=== PATIENT | female | born 1975 | race Caucasian/White ===

== ENCOUNTER 2020-03-28 13:12 | Inpatient (IN) | payer MEDICAID, SELFPAY ==
[~2020-03-28] VITALS: Ht 175.3 cm; Wt 110.2 kg
--- NOTE | 2020-03-28 13:12 | NUR ---
PT BIBA AND PLACED IN BED 1. COVID PRECAUTIONS IN PLACE. PT STATES COVID +.
--- NOTE | 2020-03-28 13:15 | NUR ---
45 YO F BIBA FROM HOME FOR C/C OF SOB X2 HOURS, PER REPORT PT WAS 77% ON RA. PT ARRIVES TO ER ON 15L NRB AT 95% O2. PT STATES SHE WAS DX WITH COVID ON 03/24/20 AND WAS ADMITTED TO [facility] FOR COVID HYPOXIA. PT WAS DISCHARGED YESTERDAY FROM HOSPITAL AND FELT GOOD UNTIL SHE WOKE UP THIS MORNING WITH SOB. LUNG SOUNDS DIMINISHED IN BILATERAL BASES, A&O X4. PT STATES SHE FEELS NAUSEA WITH NO VOMITING. PT PLACED ON RESEARCH PROGRAMMER/PULSE OX. BED LOCKED AND IN LOWEST POSITION. SIDE RAILS X1. MED HX: CHF, DM2
[2020-03-28 13:18] VITALS: BP 179/83
--- NOTE | 2020-03-28 13:35 | NUR ---
RECEIVED THIS 45 YEAR OLD FEMALE FROM HOME, AWAKE, ALERT, ORIENTEDX4. CHIEF COMPLAINTS OF SOB FOR SEVERAL DAYS AND COUGH, S5DOQ-80% AT ROOM AIR, O2 AT 15L/MIN VIA NON REBREATHER MASK ADMINISTERED, T6GWG-80-13%. APPARENTLY ANXIOUS AND NAUSEATED, RE-ASSURANCE RENDERED. WARM TO TOUCH. INITIAL VITAL SIGN TAKEN AND RECORDED. SEEN AND EXAMINED BY DR. DE LA PAZ, MADE ORDERS AND CARRIED OUT. SAFETY MEASURES IN PLACE AND CONTINUE MONITOR. MED HX: HTN, DM,CHF SURGICAL HX: POST CEASAREAN, BILATERAL TOE AMPUTATION. ALLERGY: VANCOMYCIN
[2020-03-28] MEDS ORDERED: ONDANSETRON 4 MG/2 ML VIAL IVP ONE (13:50)
[2020-03-28] MEDS ORDERED: MORPHINE SULFATE 4 MG/ML SYR IVP ONE (13:50)
--- NOTE | 2020-03-28 14:08 | NUR ---
X-Ray at bedside.
[2020-03-28 14:25] LABS: APPEARANCE,URINE CLEAR (CLEAR); BILIRUBIN,URINE NEGATIVE (NEGATIVE); BLOOD, URINE 2+ (NEGATIVE); COLOR,URINE YELLOW (YELLOW); LEUKOCYTE ESTERASE ,URINE NEGATIVE (NEGATIVE); NITRITE, URINE NEGATIVE (NEGATIVE); UGLUCOSE 1+ (NEGATIVE)
[2020-03-28 14:31] LABS: BASOPHILS % (AUTO) 0.1 % (0.0-2.0); HEMATOCRIT 39.8 % (36-48); HEMOGLOBIN 13.2 g/dL (12.0-16.0); LYMPHOCYTES # (AUTO) 0.5 K/uL (2.5-16.5); LYMPHOCYTES % (AUTO) 3.9 % (20.5-51.1); MEAN CORPUSCULAR HEMOGLOBIN 28 pg (27-31); MEAN CORPUSCULAR HGB CONC 33 g/dL (33-37); MEAN CORPUSCULAR VOLUME 85.4 fL (80-94); MONOCYTES # (AUTO) 0.4 K/uL (0.8-1.0); MONOCYTES % (AUTO) 2.7 % (1.7-9.3); NEUTROPHILS # (AUTO) 12.8 K/uL (1.8-7.7); NEUTROPHILS % (AUTO) 93.3 % (42.2-75.2); PLATELET COUNT (AUTO) 224 K/uL (140-450); RED BLOOD CELL COUNT(AUTO) 4.66 MIL/uL (4.20-5.40); RED CELL DISTRIBUTION WIDTH 14.2 % (11.6-13.7); WHITE BLOOD COUNT (AUTO) 13.7 K/uL (4.8-10.8)
[2020-03-28 14:34] LABS: C-REACTIVE PROTEIN QUANT 4.2 mg/dL (0.0-0.9)
[2020-03-28 14:35] LABS: PROTHROMBIN TIME 9.9 secs (10.8-13.4)
[2020-03-28 14:38] LABS: ALBUMIN 2.4 g/dL (3.4-5.0); ANION GAP 18.2 (8-16); CARBON DIOXIDE 20.5 mmol/L (21-32); CREATININE 2.9 mg/dL (0.6-1.3); POTASSIUM 5.7 mmol/L (3.5-5.1); TOTAL BILIRUBIN 0.2 mg/dL (0.0-1.0)
[2020-03-28 14:40] LABS: RBC,URINE 11-20 (MOD) /HPF (0-5); WBC,URINE 0-5 /HPF (0-5)
[2020-03-28] MEDS ORDERED: TRAZ-343 PO (14:42)
[2020-03-28] MEDS ORDERED: ATOR20TA PO (14:42)
[2020-03-28] MEDS ORDERED: GABA300C PO (14:42)
[2020-03-28] MEDS ORDERED: CLOP75TA55 PO (14:42)
[2020-03-28] MEDS ORDERED: CLON-268 PO (14:42)
[2020-03-28] MEDS ORDERED: APIX5TAB PO (14:42)
[2020-03-28] MEDS ORDERED: SPIR50TA PO (14:42)
[2020-03-28] MEDS ORDERED: AMLO10TA PO (14:42)
[2020-03-28] MEDS ORDERED: NACL 0.9% 1,000 ML IV ONE (14:50)
[2020-03-28] MEDS ORDERED: ONDANSETRON 4 MG/2 ML VIAL IM/IVP PRN (15:00)
[2020-03-28] MEDS ORDERED: ACETAMINOPHEN 325 MG TAB PO PRN (15:00)
[2020-03-28] MEDS ORDERED: DOCUSATE SODIUM 100 MG GELCAP PO PRN (15:00)
[2020-03-28] MEDS ORDERED: HYDROcodone/APAP 7.5/325 MG 1 TAB PO PRN (15:00)
[2020-03-28] MEDS ORDERED: ZOLPIDEM 5 MG TAB PO PRN (15:00)
[2020-03-28] MEDS ORDERED: POTASSIUM CHLORIDE 10 MEQ TABER PO PRN (15:00)
[2020-03-28] MEDS ORDERED: guaiFENesin DM 200/20 MG-10 ML 10 ML UDC PO PRN (15:00)
[2020-03-28] MEDS ORDERED: ALBUTEROL HFA MDI 90 MCG/ACTUATION 8 GM INH PRN (15:05)
--- NOTE | 2020-03-28 15:05 | NUR ---
IV CANNULA G 24 INSERTED AT LEFT THUMB, ASYMPTOMATIC AND PATENT
[2020-03-28] MEDS ORDERED: CALCIUM GLUCONATE 10% 1000 MG/10 ML VIAL IVP ONE (15:10)
--- NOTE | 2020-03-28 15:23 | NUR ---
MST CONTACTED MS DUQUE, REPORT GIVEN
[2020-03-28 15:25] LABS: BARBITURATE, URINE NEGATIVE ng/ml (NEG <=200)
[2020-03-28 15:26] LABS: BENZODIAZEPINE, URINE POSITIVE ng/mL (NEG <=200); CANNABINOID, URINE POSITIVE ng/mL (NEG <=50); COCAINE, URINE NEGATIVE ng/mL (NEG <=300); OPIATE, URINE POSITIVE ng/mL (NEG <=2000); PHENCYCLIDINE SCREEN,URINE NEGATIVE ng/mL (NEG <=25)
[2020-03-28 15:29] LABS: CHOL/HDL RATIO 4.1 (1-4.5); PHOSPHORUS 3.9 mg/dL (2.5-4.9); THYROID STIMULATING HORMONE 9.24 uIU/mL (0.34-3.74)
[2020-03-28] MEDS ORDERED: SODIUM ZIRCONIUM CYCLOSILICATE 10 GM POWD.PACK PO SCH (15:30)
--- NOTE | 2020-03-28 15:38 | NUR ---
SHIFTED TO MST PER JEANIE IN STABLE CONDITION. ENDORSED TO RN PRIMARY NURSE.
[2020-03-28 15:45] VITALS: BP 144/96
--- NOTE | 2020-03-28 15:45 | NUR ---
RECEIVED PT FROM ED ON 15L NONREBREATHER MASK. PT O2 SAT IS 93%.PT RESTING IN BED. PT ABLE TO MAKE NEEDS KNOWN. RESPIRATIONS EVEN AND UNLABORED WITH NO SOB OR RESPIRATORY DISTRESS. SKIN WARM AND DRY TO TOUCH. PT HAS A LEFT THUMB 24G IV. IT IS CLEAN DRY AND INTACT. MRSA SWAB COLLECTED AND SENT. PTS MEDS ARE AT BEDSIDE. PT CALLED SISTER CHRISTA TO COME PROBLEM MANAGER MEDICATIONS BUT IS NOT ANSWERING. CHRISTA PHONE NUMBER [phone]. PT REFUSED MEDS TO BE TAKEN OUT OF ROOM AND WANTS THEM AT BEDSIDE. PT IS UNCOOPERATIVE AT TIMES BUT STABLE. SAFETY MEASURES IN PLACE. WILL CONTINUE TO MONITOR
[2020-03-28] MEDS: NACL 0.9% 1,000 ML IV SCH ×2 (17:30→23:04)
--- NOTE | 2020-03-28 17:35 | NUR ---
ADMINISTERED SCHEDULED MED PRESCRIBED PER MD ORDER. PT TOLERATED WELL. MEDICATION EDUCATION PERFORMED. PT VERBALIZED UNDERSTANDING. SAFETY MEASURES IN PLACE. WILL CONTINUE TO MONITOR
[2020-03-28] MEDS ORDERED: CALCIUM GLUCONATE 10% 1000 MG/10 ML VIAL ONE (17:37)
--- NOTE | 2020-03-28 19:30 | NUR ---
RECEIVED PATIENT FROM AM SHIFT NURSE FOR CONTINUITY OF CARE. AAOX4. RESPIRATIONS LABORED AND TACHYPNEIC. CONTINUES ON O2 15L VIA NRM, O2SAT 96%. SKIN WARM, DRY. IV SITE NOTED TO LEFT THUMB 24G, INFUSING FLUIDS WELL. PATIENT C/O PAIN, BUT WAS ALREADY MEDICATED. PATIENT REPOSITIONED AND DIMMED DOWN THE LIGHTS. ABDOMEN SOFT, NONTENDER, NONDISTENDED. BOWEL SOUNDS ACTIVE X4 QUADRANTS. PATIENT IS CONTINENT OF B/B. SAFETY PRECAUTIONS IN PLACE. ISOLATION PRECAUTIONS OBSERVED. CALL LIGHT WITHIN REACH.
[2020-03-28 20:00] VITALS: BP 130/95
[2020-03-28] MEDS ORDERED: LOVENOX 1MG/KG Q12H SUBQ SCH (21:00)
--- NOTE | 2020-03-28 21:00 | NUR ---
PATIENT REFUSED FLUIDS. RISKS AND BENEFITS EXPLAINED BUT PATIENT CONTINUED TO REFUSE. CALL LIGHT WITHIN REACH. ISOLATION PRECAUTIONS OBSERVED.
--- NOTE | 2020-03-28 23:08 | NUR ---
PATIENT RESTING COMFORTABLY IN BED. NO S/S ACUTE DISTRESS. CALL LIGHT WITHIN REACH. ISOLATION PRECAUTIONS OBSERVED.
[2020-03-29] VITALS (19 sets, daily range): BP systolic 96–158; BP diastolic 57–90
--- NOTE | 2020-03-29 01:00 | NUR ---
MADE ROUNDS. PATIENT IS ASLEEP. NO S/S ACUTE DISTRESS. CALL LIGHT WITHIN REACH. ISOLATION PRECAUTIONS OBSERVED. SAFETY PRECAUTIONS IN PLACE.
--- NOTE | 2020-03-29 03:13 | NUR ---
PATIENT IS ASLEEP. NO S/S ACUTE DISTRESS. CALL LIGHT WITHIN REACH. ISOLATION PRECAUTIONS OBSERVED. SAFETY PRECAUTIONS IN PLACE.
--- NOTE | 2020-03-29 03:51 | NUR ---
PATIENT CONTINUES TO ASK FOR PAIN MEDICATION, HOWEVER, O2SAT IS IN THE LOW TO MID 80s. ENCOURAGED PRONE POSITION OR SIDELYING POSITION TO INCREASE O2SAT BUT PATIENT IS VERY NONCOMPLIANT. RISKS AND BENEFITS EXPLAINED REGARDING PAIN MANAGEMENT, PATIENT VERBALIZED UNDERSTANDING BUT NEEDS REINFORCEMENT.
--- NOTE | 2020-03-29 05:00 | NUR ---
PATIENT CONTINUES TO BE NONCOMPLIANT WITH PRONING. O2SAT 80% ON O2 15L NRM. CONTINUES TO REMOVE MASK TO YELL AT STAFF. PROVIDED EDUCATION BUT PATIENT CONTINUES TO BE NONCOMPLIANT.
[2020-03-29 06:40] LABS: HEMATOCRIT 38.6 % (36-48); LYMPHOCYTES # (AUTO) 0.4 K/uL (2.5-16.5); MEAN CORPUSCULAR HEMOGLOBIN 29 pg (27-31); MEAN CORPUSCULAR HGB CONC 34 g/dL (33-37); MEAN CORPUSCULAR VOLUME 85.6 fL (80-94); MONOCYTES # (AUTO) 0.4 K/uL (0.8-1.0); MONOCYTES % (AUTO) 2.3 % (1.7-9.3); NEUTROPHILS # (AUTO) 15.6 K/uL (1.8-7.7); PLATELET COUNT (AUTO) 236 K/uL (140-450); RED BLOOD CELL COUNT(AUTO) 4.51 MIL/uL (4.20-5.40); RED CELL DISTRIBUTION WIDTH 14.7 % (11.6-13.7); WHITE BLOOD COUNT (AUTO) 16.4 K/uL (4.8-10.8)
[2020-03-29] MEDS: NACL 0.9% 1,000 ML IV SCH (07:01)
--- NOTE | 2020-03-29 07:05 | NUR ---
PATIENT HAS BEEN SCREENED AND CATEGORIZED MODERATE NUTRITION RISK. PATIENT WILL BE SEEN WITHIN 3-5 DAYS OF ADMISSION. 03/31/20-04/02/20 FRANCISCO GAMING MS, RDN
--- NOTE | 2020-03-29 07:20 | NUR ---
ENDORSED PATIENT TO AM SHIFT NURSE FOR CONTINUITY OF CARE.
--- NOTE | 2020-03-29 07:25 | NUR ---
RECEIVED REPORT FROM NIGHTSHIFT NURSE. PT RESTING IN BED. PT SHOWING SIGNS OF RESPIRATORY DISTRESS WITH LABORED BREATHING AND COMPLAINTS OF SOB. PT ON 15L NRM AND HIGH FLOW AT 15L O2 AT 75%. EDUCATED PT THAT SHE NEEDS TO BE ON BIPAP SINCE SHE IS NOT TOLERATING ON CURRENT OXYGEN THERAPY. INFORMED DR. JURADO AND CHARGE NURSE. WILL CONTINUE TO MONITOR
[2020-03-29 07:29] LABS: ALBUMIN 2.1 g/dL (3.4-5.0); ANION GAP 19.3 (8-16); CARBON DIOXIDE 18.1 mmol/L (21-32); CREATININE 3.1 mg/dL (0.6-1.3); POTASSIUM 4.4 mmol/L (3.5-5.1); TOTAL BILIRUBIN 0.3 mg/dL (0.0-1.0)
[2020-03-29 07:33] LABS: LYMPHOCYTES % (AUTO) 2.7 % (20.5-51.1)
--- NOTE | 2020-03-29 07:41 | NUR ---
PT REFUSING BIPAP DESPITE O2 BEING IN 50'S. RT AT BEDSIDE AND WAS ABLE TO CONVINCE PT TO KEEP BIPAP ON. PT TOLERATING FAIRLY. PT O2 IS IN LOW 80'S MD AWARE AND WILL BE IN SHORTLY TO ASSESS PATIENT. PER DR. JURADO HOLD OFF ON INTUBATION UNTIL HE SEES PATIENT.
--- NOTE | 2020-03-29 08:15 | NUR ---
PT NEEDS TO BE TRANSFERRED TO ICU. NOTIFIED SISTER CHRISTA [phone] AND BROTHER SHELBY [phone] AND INFORMED THEM ON PT CONDITION. BOTH VERBALIZED UNDERSTANDING. SHELBY WOULD LIKE TO BE THE ONE TO MAKE DECISIONS FOR PATIENT. SHELBY GAVE VERBAL CONSENT FOR PICC LINE PLACEMENT WITH SECOND NURSE POSTAL WORKER. SAFETY MEASURES IN PLACE. WILL CONTINUE TO MONITOR
--- NOTE | 2020-03-29 08:42 | NUR ---
SPOKE WITH SHIRLEY FROM PICC LINE SERVICE, MILENA-PICC LINE RN WILL CALL FOR ETA. RN ASSIGNED MADE AWARE.
--- NOTE | 2020-03-29 08:50 | NUR ---
INSERTED 16FR SORIANO PRESCRIBED PER MD ORDER. PT TOLERATED WELL. CLEAR YELLOW URINE IS DRAINING WITHOUT DEPOSITS OR SEDIMENTS. WILL CONTINUE TO MONITOR
[2020-03-29] MEDS ORDERED: ASCORBIC ACID 500 MG TAB PO SCH (09:00)
[2020-03-29] MEDS ORDERED: ZINC SULF 220 MG CAP PO SCH (09:00)
[2020-03-29] MEDS ORDERED: PANTOPRAZOLE 40 MG TABEC PO SCH (09:00)
[2020-03-29] MEDS ORDERED: AZITHROMYCIN 250 MG TAB PO SCH (09:00)
--- NOTE | 2020-03-29 09:00 | NUR ---
RECEIVED BEDSIDE REPORT FROM MANAGER ENTERPRISECONSUELO DUQUE RN, PT ON BIPAP 100% FIO2, PT SATURATING @ 85%, PER CONSUELO DUQUE PT WAS DESATURATING ON NON REBREATHER MASK 15L EARLIER, RAPID RESPONSE WAS CALLED. PT CURRENTLY SATURATING @ 85%. PT ALERT ORIENTED ABLE TO LET NEEDS KNOWN, IV TO LEFT UPPER ARM, 22G PATENT INTACT, SL, SORIANO CATH IN PLACE DRAINING TO GRAVITY. INITIAL ASSESSMENT DONE, ALL SAFETY PRECAUTION MET, CALL LIGHT WITHIN REACH, WILL CONTINUE TO MONITOR.
--- NOTE | 2020-03-29 09:00 | NUR ---
ENDORSED TO ICU NURSE FOR CONTINUITY OF CARE. PT IS STABLE
--- NOTE | 2020-03-29 09:15 | NUR ---
PT HAS BELONGINGS AT BEDSIDE AND WHEELCHAIR WITH SECURITY. BELONGINGS WERE CLEANED BEFORE GIVEN TO SECURITY.
[2020-03-29] MEDS ORDERED: DEXTROSE 50% 50 ML SYR IVP PRN (10:05)
--- NOTE | 2020-03-29 10:10 | NUR ---
DR MACDONALD AT BEDSIDE, AWARE PT IS SATURATING 85-75%, PER DR LONG PT IS AWAKE ALERT ABLE TO LET NEEDS KNOWN AND ABLE TO TALK WE ARE NOT GOING TO DO INTUBATE PT.
--- NOTE | 2020-03-29 10:25 | NUR ---
SPOKE TO DR HARE REGARDING PT GETTING PICC, PER CENTRAL LINE IS BETTER SINCE THERE IS A POSSIBILITY THAT PT NEEDS DIALYSIS IN THE FUTURE.
[2020-03-29] MEDS: DEXT 5% /NACL 0.9% 1,000 ML IV SCH (10:58)
[2020-03-29] MEDS: BLOOD GLUCOSE MONITORING 1 DEV DEV FS SCH ×3 (11:54→17:30)
[2020-03-29] MEDS: INSULIN LISPRO SLIDING SCALE 100 UNITS/ML VIAL SUBQ PRN ×3 (11:55→22:22)
--- NOTE | 2020-03-29 14:40 | NUR ---
DR. EASTON AT BEDSIDE. PLACED CENTRAL LINE, RIGHT IJ. PATIENT TOLERATED WELL. PENDING X-RAY FOR PROPER PLACEMENT.
[2020-03-29] MEDS: MORPHINE SULFATE 2 MG/ML SYR IVP PRN ×2 (15:26→20:45)
--- NOTE | 2020-03-29 16:40 | NUR ---
PT IN BED RESTING, BS CHECK COMPLETE. COVERAGE REQUIRED.
--- NOTE | 2020-03-29 19:18 | NUR ---
BEDSIDE REPORT GIVEN TO NIGHTSHIFT RN FOR CONTINUITY OF CARE.
--- NOTE | 2020-03-29 20:07 | NUR ---
RECEIVED PATIENT IN SITTING POSITION, ON BIPAP WITH [id number]% , O2 SAT IS ONLY 71%, PATIENT STILL VERY ALERT, AWAKE , ABLE TO FOLLOW THE COMMEND, NPO FOR NOW, IV D5NS AT 70 ML/HR INFUSING AT JANET PERIPHERAL LINE , WILL CONTINUE TO MONITOR.
--- NOTE | 2020-03-29 20:44 | NUR ---
PT SPO2 60 DISCUSSED W/ DR JURADO + SALOME REGARDING INTUBATION. BOTH LIZ AGREE TO INTUBATE PER SALOME MCMAHON PROVIDED VERBAL ORDERS (RN) VERBAL ORDER FENTANYL, VERSED, PROPOFOL VENT SETTINGS PC W/ [employer] VOL 450-500 START PEEP 14 (TITRATE NEEDED/TOLERATED) f24 O2>90% Addendum: 03/29/20 at 2051 by Luis Umaña Jr RT POST INTUBATION ABG 15MINS
[2020-03-29] MEDS ORDERED: PROPOFOL 1000 MG/100 ML PREMIX 100 ML IV ONE (21:00)
[2020-03-29] MEDS ORDERED: fentaNYL citrate 1 MG in NACL 0.9% 80 ML IV PRN (21:25)
--- NOTE | 2020-03-29 22:03 | NUR ---
ER DR. MENDOZA INTUBATED PATIENT IN ICU. ET TUBE 7.5 SECURED AT 24CM. PLACED ON PC 25 RR24 +15 fI02 100%. PATIENT SATTING MID-HIGH 70'S. ABG DRAWN AND REPORTED TO DR. MCMAHON. dR MCMAHON AWARE OF RETURN TIDAL VOLUMES OF 320-420ML. Addendum: 03/29/20 at 2217 by Luis Umaña Jr RT POST ABG RESULTS REPORTED TO DR MCMAHON, PER TITRATE RR TO 30. TITRATE PEEP TO 16 IF NEEDED POST PRONING. IDEALLY MAINTAIN O2 > 88/90%
--- NOTE | 2020-03-29 22:07 | NUR ---
PRONED PATIENT DROPPED PEEP TO 14 AND INCREASED RATE TO 30. PATIENT SATURATION IS AT 99%
[2020-03-30] VITALS (33 sets, daily range): BP systolic 86–150; BP diastolic 59–85
--- NOTE | 2020-03-30 | NUR ---
SPOKE TO DR MCMAHON REGARDING PATIENT'S CONDITION, PRONE POSITION 16 HOUR AND SUPINE 8 HR PER COVID PROTOCOL, VERSED PRN . PRONE PATIENT AT 2300.
[2020-03-30] MEDS: DEXT 5% /NACL 0.9% 1,000 ML IV SCH ×2 (00:23→14:41)
[2020-03-30] MEDS ORDERED: MIDAZOLAM MDV 50 MG in NACL 0.9% 40 ML IV PRN (01:20)
--- NOTE | 2020-03-30 01:50 | NUR ---
SPOKE TO RICA- DAUGHTER REGARDING CODE BLUE , SHE IS AWARE. Addendum: 03/30/20 at 7989 by Veena Lloyd RN RN WRONG PATIENT
[2020-03-30] MEDS ORDERED: MIDAZOLAM MDV 50 MG/10 ML VIAL IV ONE (04:27)
--- NOTE | 2020-03-30 04:30 | NUR ---
BP DROP TO 61/45, TITRATE LEVOPHED TO 4 MCG/KG/MIN, PATIENT IS AWAKE , OPEN HER EYES AND COUGH AT THIS TIME, TITRATE UP PROPOFOL TO 10 MCG/KG/MIN START VERSED AT THIS TIME DUE TO AGITATION , FIO2 100% , WILL CONTINE TO MONITOR.
[2020-03-30 04:55] LABS: BASOPHILS % (AUTO) 0.1 % (0.0-2.0); HEMATOCRIT 31.5 % (36-48); HEMOGLOBIN 10.5 g/dL (12.0-16.0); LYMPHOCYTES # (AUTO) 0.6 K/uL (2.5-16.5); LYMPHOCYTES % (AUTO) 5.7 % (20.5-51.1); MEAN CORPUSCULAR HEMOGLOBIN 28 pg (27-31); MEAN CORPUSCULAR HGB CONC 33 g/dL (33-37); MEAN CORPUSCULAR VOLUME 85.4 fL (80-94); MONOCYTES # (AUTO) 0.3 K/uL (0.8-1.0); NEUTROPHILS # (AUTO) 9.2 K/uL (1.8-7.7); NEUTROPHILS % (AUTO) 91.2 % (42.2-75.2); PLATELET COUNT (AUTO) 160 K/uL (140-450); RED BLOOD CELL COUNT(AUTO) 3.69 MIL/uL (4.20-5.40); RED CELL DISTRIBUTION WIDTH 14.7 % (11.6-13.7); WHITE BLOOD COUNT (AUTO) 10.1 K/uL (4.8-10.8)
[2020-03-30] MEDS: BLOOD GLUCOSE MONITORING 1 DEV DEV FS SCH ×4 (05:22→21:19)
[2020-03-30] MEDS: PROPOFOL 1000 MG/100 ML PREMIX 100 ML IV PRN ×5 (05:33→20:33)
[2020-03-30 05:37] LABS: ALBUMIN 1.6 g/dL (3.4-5.0); ANION GAP 14.8 (8-16); CARBON DIOXIDE 22.5 mmol/L (21-32); CREATININE 3.5 mg/dL (0.6-1.3); POTASSIUM 4.3 mmol/L (3.5-5.1); TOTAL BILIRUBIN 0.2 mg/dL (0.0-1.0)
--- NOTE | 2020-03-30 06:01 | NUR ---
UNABLE TO DRAW ABG DUE TO PATIENTS BP BEING TOO LOW. WILL OBTAIN AT A LATER TIME.
--- NOTE | 2020-03-30 06:30 | NUR ---
PATIENT IS AWAKE , OPEN EYES AND MOVES THE ARMS AND LEG, MAX PROPOFOL AND START VERSED PRN ORDER TO KEEP RASS SCORE -3. WILL CONTINUE TO MONITOR.
--- NOTE | 2020-03-30 07:04 | NUR ---
BODY STILL IN THE ROOM , WAITING TO MINE ANALYST . ENDORSED TO DAY SHIFT NURSE. Addendum: 03/30/20 at 0706 by Veena Lloyd RN RN WRONG PATIENT.
--- NOTE | 2020-03-30 07:40 | NUR ---
PATIENT RECEIVED ON LEVO AT 2, PROPOFOL AT 30, VERSED AT 2, AND IVF AT 70. PATIENT PRONE AT THIS TIME. TO BE SUPINED AT 1400. VITALS STABLE AT THIS TIME.
[2020-03-30] MEDS: PANTOPRAZOLE 40 MG INJ VIAL IVP SCH (08:08)
[2020-03-30] MEDS: DEXAMETHASONE 4 MG/ML VIAL IVP SCH (08:08)
--- NOTE | 2020-03-30 08:45 | NUR ---
0845 CALLED AND LEFT MESSAGE TO VIVIAN, HD NURSE, TO NOTIFY OF HD ORDERS FOR TODAY AND TOMORROW. MESSAGE LEFT.
--- NOTE | 2020-03-30 08:54 | NUR ---
PATIENT WAS RE-SCREENED AND CATEGORIZED HIGH NUTRITIONAL RISK FOR RECENT INTUBATION. RD WILL ASSESS PATIENT 1-2 DAYS WITHIN ADMISSION. 03/30/[address]
[2020-03-30 09:06] LABS: T4 (THYROXINE) 8.2 ug/dL (4.5-12.0)
--- NOTE | 2020-03-30 09:15 | NUR ---
DR. OWENS MADE ROUNDS. UPDATED ON CURRENT PATIENT CONDITION, LABS, MEDS, VENT SETTINGS. NO NEW ORDERS AT THIS TIME.
--- NOTE | 2020-03-30 09:19 | NUR ---
SOCIAL WORK NOTE: Patient's Orientation Unable To Assess Information Provided By SHELBY SHORE - BROTHDAVIDSON Comments SW WAS UNABLE TO MEET PATIENT AT BEDSIDE. SW COMPLETED ASSESSMENT WITH PATIENT'S BROTHER. Pet Store Merchandiser, Realtionship and Phone Number SHELBY SHORE BROTHER [phone] [facility] Power of Manager Of Project Management No Does Patient Have a POLST No Identifying Problems No Social Work Triggers Is A Social Work Consult Needed No Mandate Report Filed No Explanation Of Identifying Problems PATIENT IS A 45-YEAR-OLD FEMALE ADMITTED FOR COVID AND PNEUMONIA. PATIENT HAS PMHX OF CHRONIC PAIN AND CHF. PER BROTHER, PATIENT IS CURRENTLY STAYING AT [facility] 6 IN [place]. BROTHER STATED THAT PATIENT IS CURRENTLY RECEIVING SSI - $900 A MONTH. BROTHER STATED THAT PATIENT WAS IN A HOUSING PROGRAM PRIOR TO HER HOSPITALIZATION. SW WILL PROVIDE HOMELESS RESOURCES TO PATIENT AT BEDSIDE. Admitted From [facility] Pre-Admission Level Of Functioning Status Assist With ADL Level Of Functioning Comment PER BROTHER, PATIENT STAYS WITH FRIEND WES, WHO ASSISTS HER WITH ADLS. PATIENT IS ABLE TO WALK SHORT DISTANCES PER BROTHER. BROTHER DID NOT HAVE CONTACT INFORMATION FOR WES. Prior Resources/Services Used In Last 12 Months Homeless Resources Prior Resources/Service Comments BROTHER STATED THAT PATIENT WAS IN HOUSING PROGRAM PRIOR TO HOSPITALIZATION. Prior DME Wheelchair Dialysis Comments N/A Living Situation Rents A Room Other Living Situation/Comment PER BROTHER, PATIENT RENTS A ROOM IN [place] [facility]. Patient Had Caregiver No Home Support No Caregiver Issues Financial Issues No Known Financial Issue Referral To The Financial Counselor Needed No Factors/Needs Longterm/Homeless Explanation And Or Other Factors Affecting/Possible DC Needs SW WILL PROVIDE HOMELESS RESOURCES AT BEDSIDE AND SPEAK TO PATIENT REGARDING DISCHARGE PLAN. Pt/Rep Participated In Discharge Plan Yes Patient/Family Agress With Discharge Plan Yes Discharge Plan Comments TENTATIVE DISCHARGE PLAN IS FOR PATIENT TO RESUME HOUSING AID THAT SHE WAS RECEIVING PRIOR TO HOSPITALIZATION. DC Plan Status Initiated
--- NOTE | 2020-03-30 10:30 | NUR ---
DR. COONEY MADE ROUNDS. UPDATED ON CURRENT PATIENT CONDITION AND VENT SETTINGS. UPDATED ON CURRENT MEDS. NO NEW ORDERS AT THIS TIME.
[2020-03-30] MEDS: INSULIN LISPRO SLIDING SCALE 100 UNITS/ML VIAL SUBQ PRN ×3 (11:34→21:21)
--- NOTE | 2020-03-30 11:53 | NUR ---
DISCHARGE PLANNING: THIS IS A 45 Y/O FEMALE PATIENT FROM A MOTEL, WHO CAME IN DUE TO WORSENING SOB. PAST MEDICAL HISTORY INCLUDE HEART FAILURE, HTN, CAD, HYPERLIPIDEMIA AND NEUROPATHY. INITIAL DIAGNOSIS OF COVID PNEUMONIA AND HYPOXIA. ORALLY INTUBATED TO VENT, FIO2 75%, PEEP 14, O2 SAT 99%. SEDATED WITH FENTANYL AND VERSED. ON LEVOPHED DRIP, BP 118/66. CURRENT LABS INCLUDE WBC 10.1, H/H 10.5/31.5, NA/K 137/4.3, BUN/CREA 54/3.5, ALB 1.6, D DIMER 3140. UDS SHOWED POSITIVE FOR OPIATES, BENZO AND CANNABINOIDS. COVID RAPID AND PCR POSITIVE. ON DECADRON, ROCEPHIN. CARDIO, ID, NEPHRO, SURGICAL AND PULMO CONSULTS IN PLACE. DC PLAN PENDING ON PATIENT'S RESPONSE TO TREATMENT. Addendum: 04/06/20 at 1150 by Humaira Shi REMAINS IN ICU, INTUBATED TO VENT FIO2 65%, PEEP 10 AND O2 SAT 91%. SEDATED WITH FENTANYL AND PROPOFOL. ON LEVOPHED DRIP BP 89/47. ON MERREM, LINEZOLID. FOR HD TODAY. SEDATION VACATION IF TOLERATED PER PULMO. Addendum: 04/07/20 at 1123 by Humaira Shi CM RECEIVED A CALL FROM JAJA [phone] OF [employer] REQUESTING INFORMATION REGARDING CAPACITY TO TALK FOR SCREENING. INFORMED HER THAT PATIENT IS INTUBATED AND SEDATED AND REMAINS IN ICU. PER YANIRA, SHE WILL FOLLOW UP WITH ME AND THE NURSE FOR UPDATES. Addendum: 04/07/20 at 1315 by Humaira Shi CM SEEN BY PULMO - CONT MECHANICAL VENTILATION. ORDERED CXR AND ABG, CONT TO WEAN DOWN PEEP AND FIO2, WILL START WITH WEANING TOMORROW MORNING.
--- NOTE | 2020-03-30 13:50 | NUR ---
SPOKE TO DR. OWENS TO RECOMMEND BOLUS TUBE FEEDING WITH NEPRO AT 235 ML X 3 DAY WITH PROSOURCE BID, FLUSH [address] OWENS APPROVED TELEPHONE ORDER.
--- NOTE | 2020-03-30 14:00 | NUR ---
PATIENT SUPINED 1400 WITH 2 RT AND 2 RN (INCLUDING MYSELF). PATIENT CLEANED AND BATHED. NO NOTED S/S PAIN SOB OR DISTRESS. TOLERATED REPOSITIONING. CURRENTLY REMAINS ON SEDATION AND LEVOPHED.
--- NOTE | 2020-03-30 15:09 | NUR ---
03/30/20 RD INITIAL ASSESSMENT COMPLETED PLEASE REFER TO NUTRITION ASSESSMENT UNDER CARE ACTIVITY FOR ESTIMATED NUTRITIONAL NEEDS. 1. RECOMMEND BOLUS TUBE FEEDINGS WITH NEPRO 1.8 OF 235 ML X3 DAILY AND PROSOURCE BID (705 ML OF VOLUME DAILY) -THIS WILL PROVIDE 1389 KCAL AND 87 GM OF PROTEIN. MEETING >80% OF KCAL AND PROTEIN. 2. RECOMMEND FREE WATER FLUSH OF [address] TO FOLLOW-UP 2-3 DAYS, HIGH RISK SANDY HANSEN RD
--- NOTE | 2020-03-30 17:08 | NUR ---
PT IN SUPINE POSITION SATURATION 100%. TITRATED FIO2 TO 60% AND PEEP TO +12. PT SATURATION REMAINS STABLE AT 99%. NO SIGNS OF RESPIRATORY DISTRESS. WILL CONTINUE TO MONITOR.
--- NOTE | 2020-03-30 17:54 | NUR ---
HD NURSE CAME AND STARTED HD. ACCORDING TO HER CATHETER NOT WORKING WELL. DR. EASTON WAS IN UNIT AND WAS NOTIFIED. HE STATED TO OBTAIN CONSENT FOR REPLACEMENT OF CATHETER. CALLED PATIENT BROTHER, SHELBY, AND CONSENT OBTAINED AND VERIFIED BY 2 RN. UPDATED ON CURRENT PATIENT CONDITION. DR. EASTON AWARE THAT CONSENT OBTAINED. HD NURSE AWARE CATHETER TO BE REPLACED. HD STOPPED. SUPPLIES PREPARED FOR DR. EASTON TO DO BEDSIDE CATHETER REPLACEMENT.
--- NOTE | 2020-03-30 19:19 | NUR ---
DR. EASTON PLACED LEFT IJ TRIPLE LUMEN AND REPLACE RIGHT IJ GARIMA CATHETER. PATIENT TOLERATED WELL WITHOUT ANY NOTED ISSUES. AT THIS TIME PATIENT VITALS STABLE WITHOUT ANY S/S PAIN SOB OR DISTRESS. SPOKE TO HD NURSE AND LET HER KNOW CATHETER WAS REPLACED. SHE STATED SHE WILL CALL DR. HARE TO FIND OUT IF HE STILL WANTS HD TONIGHT OR OK TO DO TOMORROW. ENDORSED CONTINUITY OF CARE TO NOC RN.
--- NOTE | 2020-03-30 19:30 | NUR ---
Received Pt from day shift on the following setting PC PIP 25, R 30, Fio2 100% and Peep 12. Pt is intubated with size 7.5 ETT secured with anchor fast 24Cm @ Teeth. Ventilator is plugged into the red outlet, alarm set audible. BS clear/ diminished on auscultation. Pt has good chest rise and fall, no respiratory distress noted, Will continue to monitor.
--- NOTE | 2020-03-30 19:34 | NUR ---
RECEIVED PATIENT IN SUPINE POSITION , S/P RIJ GARIMA CATH FOR HD ACCESS, LIJ TRIPLE LUMEN FOR IV ACCESS, ETT TO VENT WITH FIO2 100%, IV DRIP: PROPOFOL 40 MCG/KG/MIN VERSED 2 MG/HR , FENTANYL 0.5 MCG/KG/HR, LEVOPHED 2MCG/MIN , ALL IV MEDICATION INFUSING AT LIJ, OG TUBE IS CLAMPED, SORIANO CATH IN PLACE AND DRAINING TO GRAVITY, SINUS RHYTHM ON THE MONITOR, WILL HAVE HD TODAY OR TOMORROW PER HD NURSE. WILL CONTINUE TO MONITOR.
[2020-03-30] MEDS: MIDAZOLAM MDV 100 MG in NACL 0.9% 80 ML IV PRN (20:33)
[2020-03-31] VITALS (34 sets, daily range): BP systolic 92–143; BP diastolic 40–81
--- NOTE | 2020-03-31 | NUR ---
PRONE PATIENT AT 2300 WITH THE HELP OF 3 RN AND 1 RT.
[2020-03-31] MEDS: INSULIN LISPRO SLIDING SCALE 100 UNITS/ML VIAL SUBQ PRN ×4 (05:44→21:03)
[2020-03-31] MEDS: BLOOD GLUCOSE MONITORING 1 DEV DEV FS SCH ×4 (05:45→20:53)
--- NOTE | 2020-03-31 05:47 | NUR ---
HUMALOG 4 UNIT SQ GIVEN PER SLIDING SCALE FOR BS 207.
[2020-03-31 06:04] LABS: BASOPHILS % (AUTO) 0.2 % (0.0-2.0); HEMATOCRIT 31.6 % (36-48); HEMOGLOBIN 10.5 g/dL (12.0-16.0); LYMPHOCYTES # (AUTO) 0.5 K/uL (2.5-16.5); LYMPHOCYTES % (AUTO) 5.8 % (20.5-51.1); MEAN CORPUSCULAR HEMOGLOBIN 29 pg (27-31); MEAN CORPUSCULAR HGB CONC 33 g/dL (33-37); MEAN CORPUSCULAR VOLUME 85.8 fL (80-94); MONOCYTES # (AUTO) 0.3 K/uL (0.8-1.0); MONOCYTES % (AUTO) 3.7 % (1.7-9.3); NEUTROPHILS # (AUTO) 7.1 K/uL (1.8-7.7); NEUTROPHILS % (AUTO) 90.3 % (42.2-75.2); PLATELET COUNT (AUTO) 163 K/uL (140-450); RED BLOOD CELL COUNT(AUTO) 3.68 MIL/uL (4.20-5.40); WHITE BLOOD COUNT (AUTO) 7.9 K/uL (4.8-10.8)
[2020-03-31 06:28] LABS: MAGNESIUM 2.5 mg/dL (1.8-2.4); PHOSPHORUS 4.8 mg/dL (2.5-4.9)
[2020-03-31 06:35] LABS: ALBUMIN 1.5 g/dL (3.4-5.0); ANION GAP 18.1 (8-16); CARBON DIOXIDE 19.7 mmol/L (21-32); CREATININE 3.5 mg/dL (0.6-1.3); POTASSIUM 4.8 mmol/L (3.5-5.1); TOTAL BILIRUBIN 0.2 mg/dL (0.0-1.0)
--- NOTE | 2020-03-31 08:42 | NUR ---
DR. OWENS MADE ROUNDS. UPDATED ON CURRENT PATIENT CONDITION, MEDS, LABS, VITALS. AWARE THAT PATIENT FOR HD TODAY. NO NEW ORDERS AT THIS TIME.
--- NOTE | 2020-03-31 08:43 | NUR ---
DR. HARE MADE ROUNDS. UPDATED ON CURRENT PATIENT CONDITION AND LABS. ORDERED TO DC IVF. AWARE PATIENT TO HAVE HD TODAY, AND DID NOT RECEIVE HD LAST NIGHT.
[2020-03-31] MEDS: PANTOPRAZOLE 40 MG INJ VIAL IVP SCH (09:10)
[2020-03-31] MEDS: DEXAMETHASONE 4 MG/ML VIAL IVP SCH (09:10)
[2020-03-31] MEDS: PROPOFOL 1000 MG/100 ML PREMIX 100 ML IV PRN ×3 (12:05→20:50)
[2020-03-31] MEDS: MIDAZOLAM MDV 100 MG in NACL 0.9% 80 ML IV PRN (13:20)
--- NOTE | 2020-03-31 15:00 | NUR ---
PATIENT SUPINED AT THIS TIME WITH RT AND 3 RNS TOTAL AT BEDSIDE. TOLERATED WELL WITHOUT ANY NOTED ISSUES. VITALS REMAINED STABLE.
--- NOTE | 2020-03-31 18:53 | NUR ---
PER HD NURSE CATHETER NOT WORKING WELL. SHE WAS ONLY ABLE TO DO [address] HARE NOTIFIED. DR. HARE STATED TO NOTIFY DR. HARE. I CALLED AND LEFT A MESSAGE AT DR. EASTON'S OFFICE AND SPOKE TO MALIK. MESSAGE LEFT NOTIFYING THAT CATHETER NOT WORKING WELL.
--- NOTE | 2020-03-31 19:23 | NUR ---
REPORT ENDORSE TO [facility] RN FOR CONTINUITY OF CARE. ENDORSED TO FOLLOW UP WITH DR. EASTON, AWAITING CALL BACK TO NOTIFY CATHETER NOT WORKING. AT THIS TIME PATIENT VITALS STABLE. REMAINS ON SEDATION WITHOUT ANY NOTED S/S PAIN SOB OR DISTRESS.
--- NOTE | 2020-03-31 19:41 | NUR ---
RECEIVED PATIENT IN SUPINE POSITION WITH FIO2 45%, ETT TO VENT , SEDATED WITH FENTANYL 0.5 MCG/KG/HR, VERSED 2 MG/HR, PROPOFOL 40 MCG/KG/MIN, ALL IV MEDICATION INFUSING AT [facility] CENTRAL LINE, [facility] GARIMA CATH TO HD - NOT WORKING PER REPORT , AND WAITING TO CALL BACK FROM DR EASTON FOR REPLACE GARIMA CATH. WILL CONTINUE TO MONITOR.
[2020-04-01] VITALS (34 sets, daily range): BP systolic 101–180; BP diastolic 33–108
--- NOTE | 2020-04-01 | NUR ---
PRONE PATIENT WITH ASSISTED 3 RN AND 1 RT. PATIENT TOLERATED WELL AT THIS TIME.
--- NOTE | 2020-04-01 04:49 | NUR ---
SKIN CARE AND ORAL CARE GIVEN , OG TUBE FEEDING ON HOLD PER COVID PRONE PROTOCOL.
[2020-04-01] MEDS: fentaNYL citrate - 50mL vial 2.5 MG in NACL 0.9% 200 ML IV PRN (05:10)
[2020-04-01] MEDS: PROPOFOL 1000 MG/100 ML PREMIX 100 ML IV PRN ×5 (05:11→21:39)
[2020-04-01 05:58] LABS: BASOPHILS % (AUTO) 0.1 % (0.0-2.0); HEMATOCRIT 32.1 % (36-48); HEMOGLOBIN 10.5 g/dL (12.0-16.0); LYMPHOCYTES # (AUTO) 0.5 K/uL (2.5-16.5); LYMPHOCYTES % (AUTO) 4.7 % (20.5-51.1); MEAN CORPUSCULAR HEMOGLOBIN 28 pg (27-31); MEAN CORPUSCULAR HGB CONC 33 g/dL (33-37); MEAN CORPUSCULAR VOLUME 85.7 fL (80-94); MONOCYTES # (AUTO) 0.5 K/uL (0.8-1.0); MONOCYTES % (AUTO) 4.5 % (1.7-9.3); NEUTROPHILS # (AUTO) 9.1 K/uL (1.8-7.7); NEUTROPHILS % (AUTO) 90.7 % (42.2-75.2); PLATELET COUNT (AUTO) 206 K/uL (140-450); RED BLOOD CELL COUNT(AUTO) 3.74 MIL/uL (4.20-5.40); RED CELL DISTRIBUTION WIDTH 15.1 % (11.6-13.7)
[2020-04-01] MEDS: BLOOD GLUCOSE MONITORING 1 DEV DEV FS SCH ×4 (06:19→21:00)
[2020-04-01 06:26] LABS: MAGNESIUM 2.4 mg/dL (1.8-2.4); PHOSPHORUS 4.9 mg/dL (2.5-4.9)
[2020-04-01 06:28] LABS: ALBUMIN 1.5 g/dL (3.4-5.0); ANION GAP 18.6 (8-16); CARBON DIOXIDE 19.8 mmol/L (21-32); CREATININE 3.5 mg/dL (0.6-1.3); POTASSIUM 4.4 mmol/L (3.5-5.1); TOTAL BILIRUBIN 0.1 mg/dL (0.0-1.0)
[2020-04-01] MEDS: DEXAMETHASONE 4 MG/ML VIAL IVP SCH (09:21)
[2020-04-01] MEDS: PANTOPRAZOLE 40 MG INJ VIAL IVP SCH (09:21)
[2020-04-01] MEDS ORDERED: ETOMIDATE 20 MG/10 ML VIAL IVP ONE (12:00)
[2020-04-01] MEDS ORDERED: ROCURONIUM 50 MG/5 ML VIAL IV ONE (12:00)
[2020-04-01] MEDS: INSULIN LISPRO SLIDING SCALE 100 UNITS/ML VIAL SUBQ PRN ×3 (12:07→22:15)
[2020-04-01] MEDS: MORPHINE SULFATE 2 MG/ML SYR IVP PRN (22:11)
[2020-04-02] VITALS (31 sets, daily range): BP systolic 116–170; BP diastolic 53–100
[2020-04-02] MEDS: PROPOFOL 1000 MG/100 ML PREMIX 100 ML IV PRN ×7 (01:09→21:37)
[2020-04-02] MEDS: fentaNYL citrate - 50mL vial 2.5 MG in NACL 0.9% 200 ML IV PRN (06:17)
[2020-04-02 06:24] LABS: BASOPHILS % (AUTO) 0.2 % (0.0-2.0); EOSINOPHILS % (AUTO) 0.1 % (0.0-4.0); HEMATOCRIT 30.7 % (36-48); HEMOGLOBIN 10.1 g/dL (12.0-16.0); LYMPHOCYTES # (AUTO) 0.5 K/uL (2.5-16.5); LYMPHOCYTES % (AUTO) 5.1 % (20.5-51.1); MEAN CORPUSCULAR HEMOGLOBIN 28 pg (27-31); MEAN CORPUSCULAR HGB CONC 33 g/dL (33-37); MEAN CORPUSCULAR VOLUME 86.3 fL (80-94); MONOCYTES # (AUTO) 0.6 K/uL (0.8-1.0); MONOCYTES % (AUTO) 6.2 % (1.7-9.3); NEUTROPHILS # (AUTO) 8.7 K/uL (1.8-7.7); NEUTROPHILS % (AUTO) 88.4 % (42.2-75.2); PLATELET COUNT (AUTO) 185 K/uL (140-450); RED BLOOD CELL COUNT(AUTO) 3.56 MIL/uL (4.20-5.40); WHITE BLOOD COUNT (AUTO) 9.8 K/uL (4.8-10.8)
[2020-04-02 06:35] LABS: ALBUMIN 1.4 g/dL (3.4-5.0); ANION GAP 17.1 (8-16); CARBON DIOXIDE 21.4 mmol/L (21-32); CREATININE 3.4 mg/dL (0.6-1.3); POTASSIUM 4.5 mmol/L (3.5-5.1); TOTAL BILIRUBIN 0.2 mg/dL (0.0-1.0)
[2020-04-02 07:00] LABS: MAGNESIUM 2.8 mg/dL (1.8-2.4); PHOSPHORUS 5.5 mg/dL (2.5-4.9)
[2020-04-02] MEDS: BLOOD GLUCOSE MONITORING 1 DEV DEV FS SCH ×4 (07:35→21:51)
[2020-04-02] MEDS: PANTOPRAZOLE 40 MG INJ VIAL IVP SCH (09:02)
[2020-04-02] MEDS: DEXAMETHASONE 4 MG/ML VIAL IVP SCH (09:03)
[2020-04-02] MEDS: ASPIRIN 81 MG TAB.CHEW PO SCH (09:03)
--- NOTE | 2020-04-02 09:05 | NUR ---
NN - NO HEPARIN GIVEN DUE TO POSSIBLE PLACEMENT OF HD CATH TODAY.
[2020-04-02] MEDS: INSULIN LISPRO SLIDING SCALE 100 UNITS/ML VIAL SUBQ PRN ×3 (11:40→21:49)
--- NOTE | 2020-04-02 17:11 | NUR ---
04/02/20 RD FOLLOW UP COMPLETED PLEASE REFER TO NUTRITION ASSESSMENT UNDER CARE ACTIVITY FOR ESTIMATED NUTRITIONAL NEEDS. 1. NEPRO 1.8 OF 235 ML TID AND PROSOURCE BID OR NEPRO 1.8 @ 90 ML/HR X 8 HOURS 2. CONTINUE FLUSH OF 160 ML TID 3. RECOMMEND REGLAN FOR GASTRIC MOTILITY 4. RD TO FOLLOW-UP 2-3 DAYS, HIGH RISK SANDY HANSEN, RD
--- NOTE | 2020-04-02 21:44 | NUR ---
RECEIVED INTUBATED PT FROM AM SHIFT. PT SEEN AND ASSESSED. PT IS INTUBATED WITH ETT SIZE 7.5 AND SECURED WITH BITTING BLOCK ANCHOR-FAST AT 25 @ TEETH. PT IS ON VENT SETTINGS: PC 25, RR 30, PEEP 10, FiO2 55% WITH SPO2 OF 97%. VENT PLUGGED IN RED OUTLET. ALARMS SET AND AUDIBLE TO ENVIRONMENT. AMBU BAG AT BEDSIDE. NOTICED ADEQUATE CHEST RISE AND FALL. AUSCULTATION REVEALS CLEAR BREATH SOUNDS ON THE UPPER LOBES AND RALES BREATH SOUNDS ON THE BASES. SUCTION SMALL AMOUNT OF WHITE THICK SECRETIONS FROM ETT. WILL CONTINUE TO MONITOR PT.
[2020-04-02] MEDS: MORPHINE SULFATE 2 MG/ML SYR IVP PRN (22:45)
[2020-04-03] VITALS (34 sets, daily range): BP systolic 98–156; BP diastolic 50–113
[2020-04-03] MEDS: PROPOFOL 1000 MG/100 ML PREMIX 100 ML IV PRN ×7 (00:36→21:17)
[2020-04-03] MEDS: fentaNYL citrate - 50mL vial 2.5 MG in NACL 0.9% 200 ML IV PRN (05:02)
[2020-04-03 06:18] LABS: BASOPHILS % (AUTO) 0.1 % (0.0-2.0); EOSINOPHILS % (AUTO) 0.2 % (0.0-4.0); HEMOGLOBIN 10.2 g/dL (12.0-16.0); LYMPHOCYTES # (AUTO) 0.5 K/uL (2.5-16.5); LYMPHOCYTES % (AUTO) 4.6 % (20.5-51.1); MEAN CORPUSCULAR HEMOGLOBIN 28 pg (27-31); MEAN CORPUSCULAR HGB CONC 33 g/dL (33-37); MEAN CORPUSCULAR VOLUME 85.9 fL (80-94); MONOCYTES # (AUTO) 0.6 K/uL (0.8-1.0); MONOCYTES % (AUTO) 5.6 % (1.7-9.3); NEUTROPHILS # (AUTO) 10.3 K/uL (1.8-7.7); NEUTROPHILS % (AUTO) 89.5 % (42.2-75.2); PLATELET COUNT (AUTO) 230 K/uL (140-450); RED BLOOD CELL COUNT(AUTO) 3.61 MIL/uL (4.20-5.40); RED CELL DISTRIBUTION WIDTH 15.3 % (11.6-13.7); WHITE BLOOD COUNT (AUTO) 11.5 K/uL (4.8-10.8)
[2020-04-03 06:20] LABS: ALBUMIN 1.3 g/dL (3.4-5.0); ANION GAP 17.2 (8-16); CARBON DIOXIDE 21.3 mmol/L (21-32); CREATININE 3.6 mg/dL (0.6-1.3); POTASSIUM 4.5 mmol/L (3.5-5.1); TOTAL BILIRUBIN 0.2 mg/dL (0.0-1.0)
[2020-04-03] MEDS: BLOOD GLUCOSE MONITORING 1 DEV DEV FS SCH ×4 (08:07→20:38)
[2020-04-03] MEDS: DEXAMETHASONE 4 MG/ML VIAL IVP SCH (09:01)
[2020-04-03] MEDS: ASPIRIN 81 MG TAB.CHEW PO SCH (09:01)
[2020-04-03] MEDS: PANTOPRAZOLE 40 MG INJ VIAL IVP SCH (09:01)
--- NOTE | 2020-04-03 09:02 | NUR ---
NN - HEPARIN HELD FOR PROCEDURE TODAY
[2020-04-03] MEDS: INSULIN LISPRO SLIDING SCALE 100 UNITS/ML VIAL SUBQ PRN ×3 (12:35→20:48)
--- NOTE | 2020-04-03 17:19 | NUR ---
NN - DR. JAKE HARE PLACED NEW HD CATHETER. CHEST XRAY BEING DONE NOW. IF PLACEMENT IS CORRECT, WILL ATTEMPT TO CALL FOR DIALYSIS.
--- NOTE | 2020-04-03 19:24 | NUR ---
REPORT RECEIVED FROM AM SHIFT RN FOR CONTINUITY OF CARE. SINUS BRADYCARDIA ON MONITOR. LT SIDED UPPER CHEST PACEMAKER. SEDATED RASS -3, PT ETT TO VENT, AC/PC MODE, FIO2 55%, RATE 30, PEEP 10. IV SITE LIJ TLC INFUSING FENTANYL 1MCG/KG/HR, VERSED 2MG/HR, PROPOFOL 50 MCG/KG/MIN. RIJ HEMODIAYLSIS CATH SALINE LOCKED. OGT IN PLACE. SORIANO CATHETER IN PLACE. SKIN INTACT, WARM AND DRY. DRY WEIGHT 110 KG. SAFETY PRECAUTIONS IN PLACE. HOB 30 DEGREES. BED LOCKED IN LOWEST POSITION. WILL CONTINUE TO MONITOR.
[2020-04-03] MEDS: METOCLOPRAMIDE 10 MG/2 ML INJ VIAL IVP SCH (20:11)
--- NOTE | 2020-04-03 21:00 | NUR ---
BLOOD SUGAR 189, HUMALOG 2 UNITS GIVEN.
--- NOTE | 2020-04-03 23:12 | NUR ---
PT SEDATED, RESPIRATIONS EVEN AND UNLABORED. CHEST RISE IS SYMMETRICAL. WILL CONTINUE TO MONITOR.
[2020-04-04] VITALS (35 sets, daily range): BP systolic 90–152; BP diastolic 51–81
[2020-04-04] MEDS: MIDAZOLAM MDV 100 MG in NACL 0.9% 80 ML IV PRN (00:11)
[2020-04-04] MEDS: PROPOFOL 1000 MG/100 ML PREMIX 100 ML IV PRN ×7 (00:18→23:21)
--- NOTE | 2020-04-04 01:15 | NUR ---
PT SEDATED, RESPIRATIONS EVEN AND UNLABORED. CHEST RISE IS SYMMETRICAL. WILL CONTINUE TO MONITOR.
--- NOTE | 2020-04-04 03:45 | NUR ---
PT CLEANED, REPOSITIONED, ORAL CARE, AND SORIANO CARE PROVIDED. SAFETY PRECAUTIONS IN PLACE. WILL CONTINUE TO MONITOR.
[2020-04-04] MEDS: METOCLOPRAMIDE 10 MG/2 ML INJ VIAL IVP SCH ×3 (05:00→20:56)
[2020-04-04 06:27] LABS: ANION GAP 20.8 (8-16); CREATININE 3.9 mg/dL (0.6-1.3); POTASSIUM 4.8 mmol/L (3.5-5.1)
[2020-04-04 06:29] LABS: ALBUMIN 1.2 g/dL (3.4-5.0); ANION GAP 19.1 (8-16); CARBON DIOXIDE 18.8 mmol/L (21-32); CREATININE 3.9 mg/dL (0.6-1.3); POTASSIUM 4.9 mmol/L (3.5-5.1); TOTAL BILIRUBIN 0.4 mg/dL (0.0-1.0)
[2020-04-04 06:32] LABS: BASOPHILS % (AUTO) 0.1 % (0.0-2.0); EOSINOPHILS % (AUTO) 0.2 % (0.0-4.0); HEMATOCRIT 29.8 % (36-48); HEMOGLOBIN 9.6 g/dL (12.0-16.0); LYMPHOCYTES # (AUTO) 0.6 K/uL (2.5-16.5); LYMPHOCYTES % (AUTO) 3.9 % (20.5-51.1); MEAN CORPUSCULAR HEMOGLOBIN 28 pg (27-31); MEAN CORPUSCULAR HGB CONC 32 g/dL (33-37); MEAN CORPUSCULAR VOLUME 86.6 fL (80-94); MONOCYTES # (AUTO) 0.8 K/uL (0.8-1.0); MONOCYTES % (AUTO) 5.6 % (1.7-9.3); NEUTROPHILS # (AUTO) 12.8 K/uL (1.8-7.7); NEUTROPHILS % (AUTO) 90.2 % (42.2-75.2); PLATELET COUNT (AUTO) 284 K/uL (140-450); RED BLOOD CELL COUNT(AUTO) 3.44 MIL/uL (4.20-5.40); RED CELL DISTRIBUTION WIDTH 15.4 % (11.6-13.7); WHITE BLOOD COUNT (AUTO) 14.2 K/uL (4.8-10.8)
--- NOTE | 2020-04-04 07:20 | NUR ---
REPORT GIVEN TO AM SHIFT RN FOR CONTINUITY OF CARE
[2020-04-04] MEDS: BLOOD GLUCOSE MONITORING 1 DEV DEV FS SCH ×4 (08:15→21:34)
[2020-04-04] MEDS: fentaNYL citrate - 50mL vial 2.5 MG in NACL 0.9% 200 ML IV PRN (09:08)
[2020-04-04] MEDS: DEXAMETHASONE 4 MG/ML VIAL IVP SCH (09:23)
[2020-04-04] MEDS: PANTOPRAZOLE 40 MG INJ VIAL IVP SCH (09:23)
[2020-04-04] MEDS: ASPIRIN 81 MG TAB.CHEW PO SCH (09:23)
[2020-04-04] MEDS: INSULIN LISPRO SLIDING SCALE 100 UNITS/ML VIAL SUBQ PRN ×2 (17:58→21:32)
[2020-04-04] MEDS: NOREPINEPHRINE 16 MG in DEXTROSE 5% 250 ML IV PRN (18:02)
[2020-04-05] VITALS (35 sets, daily range): BP systolic 95–169; BP diastolic 42–82
[2020-04-05] MEDS: PROPOFOL 1000 MG/100 ML PREMIX 100 ML IV PRN ×6 (01:51→20:36)
[2020-04-05] MEDS: METOCLOPRAMIDE 10 MG/2 ML INJ VIAL IVP SCH ×3 (05:00→20:41)
[2020-04-05 06:12] LABS: BASOPHILS % (AUTO) 0.1 % (0.0-2.0); EOSINOPHILS % (AUTO) 0.1 % (0.0-4.0); LYMPHOCYTES # (AUTO) 0.7 K/uL (2.5-16.5); LYMPHOCYTES % (AUTO) 3.7 % (20.5-51.1); MEAN CORPUSCULAR HEMOGLOBIN 28 pg (27-31); MEAN CORPUSCULAR HGB CONC 32 g/dL (33-37); MEAN CORPUSCULAR VOLUME 86.5 fL (80-94); MONOCYTES # (AUTO) 0.7 K/uL (0.8-1.0); MONOCYTES % (AUTO) 3.7 % (1.7-9.3); NEUTROPHILS # (AUTO) 17.5 K/uL (1.8-7.7); NEUTROPHILS % (AUTO) 92.4 % (42.2-75.2); PLATELET COUNT (AUTO) 346 K/uL (140-450); RED BLOOD CELL COUNT(AUTO) 3.58 MIL/uL (4.20-5.40); RED CELL DISTRIBUTION WIDTH 15.5 % (11.6-13.7)
[2020-04-05 06:14] LABS: ANION GAP 17.8 (8-16); CARBON DIOXIDE 19.2 mmol/L (21-32); CREATININE 3.9 mg/dL (0.6-1.3)
--- NOTE | 2020-04-05 07:55 | NUR ---
RECEIVED HANDOFF FROM MARBLE RUBBER RN. PT IS SEDATED RASS -3. PT IS ETT TO VENT ACPC MODE WITH FIO2 55%, R 30, PEEP 10. PT HAS OG TUBE BUT PER MARBLE RUBBER FEEDING WAS HELD DUE TO HIGH RESIDUAL. PT IS SR ON THE MONITOR AT THIS TIME. FOR ACCESS PT HAS LIJ TRIPLE LUMEN AND RIJ GARIMA HD CATHETER. FENTANYL 1 MCG/KG/HR, VERSED AT 2 MG/HR, PROPOFOL AT 50 MCG/KG/MIN. SORIANO CATHETER IS IN PLACE. HOB IS 30 DEG WITH BED IN LOW, LOCKED POSITION. WILL CONTINUE TO MONITOR.
--- NOTE | 2020-04-05 08:40 | NUR ---
RECEIVED ON A MaginAPE R860 VENTILATOR PLUGGED INTO RED OUTLET TOLERATING WELL WITHOUT ADVERSE REACTIONS NOTED TO AN ENDOTRACHEAL TUBE #7.5 SECURED AT 25cm WITH AN ANCHOR FAST CUFF PRESSURE CHECKED NOTED AMBU BAG AT BEDSIDE ENDOTRACHEAL TUBE SUCTION FOR MODERATE THIN YELLOW SECRETIONS AIRWAY PATENT
[2020-04-05] MEDS: ASPIRIN 81 MG TAB.CHEW PO SCH (09:00)
[2020-04-05] MEDS: fentaNYL citrate - 50mL vial 2.5 MG in NACL 0.9% 200 ML IV PRN (09:23)
[2020-04-05] MEDS: BLOOD GLUCOSE MONITORING 1 DEV DEV FS SCH ×3 (09:30→18:27)
[2020-04-05] MEDS: PANTOPRAZOLE 40 MG INJ VIAL IVP SCH (09:38)
[2020-04-05] MEDS: DEXAMETHASONE 4 MG/ML VIAL IVP SCH (09:39)
--- NOTE | 2020-04-05 10:13 | NUR ---
MEDICATIONS ADMINISTERED PER ORDER EXCEPT ASPIRIN HELD DUE TO PT ALREADY BEING ON HEPARIN SQ. TEMPERATURE 97.3 TEMPORALLY. PT REPOSITIONED. VAP ORAL CARE PROVIDED, CHG BATH, SORIANO CARE PROVIDED. RESIDUAL OF 20 ML FROM OG TUBE FEED. WILL CONSULT FNS FOR NEW TUBE FEED ORDER.
--- NOTE | 2020-04-05 11:38 | NUR ---
SEDATED RESTING COMFORTABLY GOOD CHEST RISE ENDOTRACHEAL SUCTION FOR LARGE THIN YELLOW SECRETIONS AIRWAY PATENT OROPHARYNGEAL SUCTION FOR LARGE THIN PALE YELLOW SECRETIONS
--- NOTE | 2020-04-05 11:57 | NUR ---
04/05/20 RD FOLLOW UP COMPLETED PLEASE REFER TO NUTRITION PROGRESS NOTE UNDER CARE ACTIVITY FOR ESTIMATED NUTRITION NEEDS. RD RECOMMENDATIONS: 1. RECOMMEND TF NEPRO @40MLS/HR.X24HRS (CONTINUOUS TF). THIS WILL PROVIDE 1728KCALS, 78GM PROTEIN - SUFFICIENT TO MEET 100% ESTIMATED NEEDS 2. RECOMMEND FLUSH OF 200 MLS Q6HRS 3. RECOMMEND CONTINUE REGLAN FOR GASTRIC MOTILITY 4. RD TO FOLLOW-UP 2-3 DAYS, HIGH RISK KEYANNA SERVIN MBA, RD
[2020-04-05] MEDS: INSULIN LISPRO SLIDING SCALE 100 UNITS/ML VIAL SUBQ PRN ×2 (13:00→18:27)
--- NOTE | 2020-04-05 13:15 | NUR ---
DR. ZHANG SEEING PT
--- NOTE | 2020-04-05 13:16 | NUR ---
MEDICATIONS GIVEN PER ORDER. PT TOLERATED WELL. TEMPERATURE 98.9 TEMPORALLY. BS 159 2 UNITS INSULIN ADMINISTERED FOR COVERAGE. PT REPOSITIONED AND VAP ORAL CARE DONE.
--- NOTE | 2020-04-05 13:57 | NUR ---
RESTING WELL GOOD CHEST RISE AIRWAY PATENT
--- NOTE | 2020-04-05 15:30 | NUR ---
DR. FIELDS PAGED REGARDING POSITIVE SPUTUM CULTURES. AWAITING RESPONSE
--- NOTE | 2020-04-05 15:43 | NUR ---
BROTHER SHELBY CALLED AND WAS PROVIDED WITH UPDATE ON PT'S STATUS
--- NOTE | 2020-04-05 16:44 | NUR ---
PT REPOSITIONED, CLEANED, LINENS CHANGED. TEMPERATURE 99.3 AXILLARY. PT LEFT UNCOVERED. WILL CONTINUE TO MONITOR. VAP ORAL CARE PROVIDED.
--- NOTE | 2020-04-05 17:41 | NUR ---
100 ML CLEAR KERA URINE EMPTIED FROM SORIANO CATHETER
--- NOTE | 2020-04-05 19:19 | NUR ---
HANDOFF GIVEN TO PEDIATRIC MEDICAL ASSISTANT RN FOR CONTINUITY OF CARE
--- NOTE | 2020-04-05 19:44 | NUR ---
RECEIVED PT FROM DAY SHIFT ON THE VENTILATOR FOLLOWING SETTING PC PIP25. R30, FIO2 55%, PEEP 10. PT INTUBATED WITH A SIZE 7.5 ETT SECURE WITH AN ANCHOR FAST @ 25CM TEETH/GUM. VENTILATOR IS PLUGGED INTO THE RED OUTLET, ALARM SET AUDIBLE. PT HAS GOOD CHEST RISE AND FALL. B/S CLEAR AND DIMINISHED AT BASES. WILL CONTINUE TO MONITOR.
[2020-04-05] MEDS: MEROPENEM 500 MG in NACL 0.9% 50 ML IV SCH (22:00)
[2020-04-05] MEDS ORDERED: MEROPENEM 500 MG VIAL IV ONE (23:53)
[2020-04-06] VITALS (32 sets, daily range): BP systolic 86–166; BP diastolic 45–109
[2020-04-06] MEDS: LINEZOLID 600MG PREMIX 300 ML IV SCH ×3 (00:07→20:04)
[2020-04-06] MEDS: PROPOFOL 1000 MG/100 ML PREMIX 100 ML IV PRN ×3 (00:51→17:43)
--- NOTE | 2020-04-06 01:20 | NUR ---
PT PULLING VOLUME FROM 800 TO 900. DECREASE PEAK INSPIRATORY PRESSURE TO 18 TO KEEP MINUTE VENTILATION BETWEEN 20 TO 25. WILL CONTINUE MONITOR.
[2020-04-06] MEDS: ACETAMINOPHEN 650 MG SUPP RC PRN (02:05)
[2020-04-06] MEDS: METOCLOPRAMIDE 10 MG/2 ML INJ VIAL IVP SCH ×3 (05:00→20:05)
[2020-04-06] MEDS: BLOOD GLUCOSE MONITORING 1 DEV DEV FS SCH ×5 (06:00→23:00)
[2020-04-06 06:25] LABS: BASOPHILS # (AUTO) 0.1 K/uL (0.00-0.22); BASOPHILS % (AUTO) 0.7 % (0.0-2.0); EOSINOPHILS % (AUTO) 0.1 % (0.0-4.0); HEMATOCRIT 29.6 % (36-48); HEMOGLOBIN 9.4 g/dL (12.0-16.0); LYMPHOCYTES # (AUTO) 0.4 K/uL (2.5-16.5); LYMPHOCYTES % (AUTO) 2.1 % (20.5-51.1); MEAN CORPUSCULAR HEMOGLOBIN 28 pg (27-31); MEAN CORPUSCULAR HGB CONC 32 g/dL (33-37); MEAN CORPUSCULAR VOLUME 87.5 fL (80-94); MONOCYTES # (AUTO) 0.7 K/uL (0.8-1.0); NEUTROPHILS # (AUTO) 17.1 K/uL (1.8-7.7); NEUTROPHILS % (AUTO) 93.1 % (42.2-75.2); PLATELET COUNT (AUTO) 357 K/uL (140-450); RED BLOOD CELL COUNT(AUTO) 3.38 MIL/uL (4.20-5.40); RED CELL DISTRIBUTION WIDTH 15.5 % (11.6-13.7); WHITE BLOOD COUNT (AUTO) 18.3 K/uL (4.8-10.8)
[2020-04-06 06:31] LABS: ANION GAP 20.4 (8-16); CARBON DIOXIDE 19.4 mmol/L (21-32); POTASSIUM 4.8 mmol/L (3.5-5.1)
[2020-04-06 07:22] LABS: CREATININE 5.1 mg/dL (0.6-1.3)
[2020-04-06] MEDS: NOREPINEPHRINE 16 MG in DEXTROSE 5% 250 ML IV PRN (08:22)
[2020-04-06] MEDS: MEROPENEM 500 MG in NACL 0.9% 50 ML IV SCH ×4 (09:17→20:01)
[2020-04-06] MEDS: PANTOPRAZOLE 40 MG INJ VIAL IVP SCH (09:18)
[2020-04-06] MEDS: ASPIRIN 81 MG TAB.CHEW PO SCH (09:19)
[2020-04-06] MEDS: DEXAMETHASONE 4 MG/ML VIAL IVP SCH (09:19)
[2020-04-06] MEDS: fentaNYL citrate - 50mL vial 2.5 MG in NACL 0.9% 200 ML IV PRN (09:48)
[2020-04-06] MEDS: INSULIN LISPRO SLIDING SCALE 100 UNITS/ML VIAL SUBQ PRN ×3 (11:40→23:01)
--- NOTE | 2020-04-06 19:30 | NUR ---
RECEIVED PATIENT CARE REPORT FROM GUILLERMINA CORDERO. PATIENT ETT TO VENT, HOB AT 30 DEGREES, TRACH SECURED, IN PLACE AND AIRWAY PATENT. CURRENT VENT SETTINGS ARE AC/PC, FIO2 AT 65%, RR 30, AND PEEP 10. PATIENT CURRENTLY TOLERATING VENT SETTINGS WELL. PATIENT HAS AN OG TUBE IN PLACE, SECURED, PATENT AND INTACT. TUBE FEEDING ORDER IS NEPRO, GOAL OF 40 ML/HR, FWF 100 ML Q6 HR, CURRENT RESIDUALS AT 300 ML. TUBE FEEDING CURRENTLY HELD AT THIS TIME DUE TO HIGH RESIDUALS. PATIENT ON CONTINUOUS CARDIAC MONITORING, NORMAL SINUS RHYTHM AT 68 BPM, RR AT 14, WILL CONTINUE TO CLOSELY MONITOR. IV ACCESS SITES INCLUDE LEFT IJ TRIPLE LUMEN AND RIGHT IJ GARIMA CATH FOR HD. DRIPS RUNNING ARE FENTANYL AT 1 MCG/KG/HR, VERSED AT 2 MG/HR, PROPOFOL AT 15 MCG/KG/HR, AND IVF AT 5 ML/HR. PATIENT WEIGHT IS 107 KG. PATIENT HAS A SORIANO CATH IN PLACE, INTACT AND SECURE, DRAINING WELL. SKINS SHOW RIGHT PARTIAL FOOT AMPUTATION WITH PURPLE DISCOLORATION AND LEFT FOOT PARTIAL TOE AMPUTATION AND PURPLE DISCOLORATION AROUND REMAINING TOES. PATIENT IS CURRENTLY PLACED IN A POSITION OF COMFORT, OFFLOADED FROM PRESSURE POINTS WITH US OF PILLOWS AND FREQUENT REPOSITIONING. BED LOWERED AND LOCKED INTO A POSITION OF SAFETY, WILL CONTINUE TO CLOSELY MONITOR AND FREQUENTLY ROUND THROUGHOUT THE SHIFT. Addendum: 04/06/20 at 2238 by Real Polk RN RN SEDATION RASS -3
--- NOTE | 2020-04-06 20:00 | NUR ---
VAP ORAL CARE AND ET TUBE/ORAL SUCTIONING, REPOSITIONING, HYGIENE, SAFETY CHECKS PROVIDED, AND TEMPERATURE CHECKED, PATIENT TOLERATING CURRENT VENT SETTINGS AND THERAPIES WELL. WILL CONTINUE TO CLOSELY MONITOR AND FREQUENTLY ROUND.
--- NOTE | 2020-04-06 22:00 | NUR ---
PATIENT CONTINUING TO REST IN A POSITION OF COMFORT, HOB 30 DEGREES, HIGH RESIDUALS STILL NOTED, TUBE FEEDING STILL BEIGN HELD AT THIS TIME. INTUBATED AND SEDATED, RASS -3. TOLERATING CURRENT VENT SETTINGS AND THERAPIES WELL. TEMPERATURE CHECKED, WNL. WILL CONTINUE TO CLOSELY MONITOR AND FREQUENTLY ROUND.
--- NOTE | 2020-04-06 22:15 | NUR ---
RT TITRATED FIO2 DOWN TO 50%, TOLERATING VENT SETTINGS WELL. WILL CONTINUE TO CLOSELY MONITOR AND FREQUENTLY ROUND.
[2020-04-07] VITALS (70 sets, daily range): BP systolic 90–161; BP diastolic 42–101
--- NOTE | 2020-04-07 | NUR ---
VAP ORAL CARE, ET TUBE/ORAL SUCTIONING, HYGIENE, REPOSITIONING, SAFETY CHECKS, AND TEMPERATURE CHECK PROVIDED. CONTINUING TO REST IN A POSITION OF COMFORT AND IS STILL INTUBATED, SEDATED AND RASS -3. NSR ON THE MONITOR AT 66 BPM, RR 18, NO SIGNS SIGNS OF DISTRESS NOTED. WILL CONTINUE TO CLOSELY MONITOR AND FREQUENTLY ROUND.
--- NOTE | 2020-04-07 01:00 | NUR ---
RT TITRATED FIO2 DOWN TO 45%, PATIENT TOLERATING VENT SETTINGS WELL, WILL CONTINUE TO CLOSELY MONITOR AND FREQUENTLY ROUND.
--- NOTE | 2020-04-07 02:00 | NUR ---
PATIENT CONTINUING TO REST COMFORTABLY IN A POSITION OF COMFORT, RASS -3, TOLERATING VENT WELL. WILL CONTINUE TO CLOSELY MONITOR AND FREQUENTLY ROUND.
[2020-04-07] MEDS: PROPOFOL 1000 MG/100 ML PREMIX 100 ML IV PRN ×2 (02:55→13:47)
--- NOTE | 2020-04-07 04:00 | NUR ---
VAP ORAL CARE, HYGIENE, BED BATH, LINEN CHANGE, REPOSITIONING, SAFETY CHECKS AND SUCTIONING PROVIDED. PATIENT CONTINUING TO TOLERATE CURRENT THERAPIES WELL. NSR AT 70 BPM, RR 20. WILL CONTINUE TO CLOSELY MONITOR AND FREQUENTLY ROUND.
[2020-04-07] MEDS: METOCLOPRAMIDE 10 MG/2 ML INJ VIAL IVP SCH ×3 (04:26→20:13)
[2020-04-07] MEDS: BLOOD GLUCOSE MONITORING 1 DEV DEV FS SCH ×3 (06:20→17:20)
[2020-04-07 06:54] LABS: ANION GAP 17.8 (8-16); CARBON DIOXIDE 23.8 mmol/L (21-32); POTASSIUM 4.6 mmol/L (3.5-5.1)
--- NOTE | 2020-04-07 07:00 | NUR ---
PATIENT CARE AND REPORT ENDORSED TO GUILLERMINA CORDERO.
--- NOTE | 2020-04-07 07:30 | NUR ---
RECEIVED REPORT FROM ENGINEER SECOND ASSISTANT RN. POC REVIEWED AND DISCUSSED. PT'S RASS -3. ON CONTINUOUS GGT, FENTANYL 1 MSG/KG/ HR, VERSED 2 MG/HR, AND PROPOFOL 15 MCG/KG/MIN. ON ETT TO VENT AC 45 FIO2, R 30. PEEP 10. NO S/S OF CYANOSIS. ON OG TUBE FEEDING NEPRO. NO RESIDUAL OBTAINED. KEPT HOB ELEVATED. LEFT IJ CENTRAL LINE PATENT AND R IJ HD DRESSING INTACT. WILL CONTINUE TO MONITOR.
[2020-04-07 07:31] LABS: CREATININE 4.4 mg/dL (0.6-1.3)
--- NOTE | 2020-04-07 08:45 | NUR ---
SPOKE WITH DR. HARE, MADE AWARE OF ELEVATED BUN/CREA. HD ORDERED TODAY. NOTED AND WILL FOLLOW UP ORDERS.
[2020-04-07] MEDS: PANTOPRAZOLE 40 MG INJ VIAL IVP SCH (09:22)
[2020-04-07] MEDS: DEXAMETHASONE 4 MG/ML VIAL IVP SCH (09:23)
[2020-04-07] MEDS: MEROPENEM 500 MG in NACL 0.9% 50 ML IV SCH ×2 (09:23→20:14)
[2020-04-07] MEDS: ASPIRIN 81 MG TAB.CHEW PO SCH (09:24)
[2020-04-07] MEDS: LINEZOLID 600MG PREMIX 300 ML IV SCH ×2 (09:24→20:13)
--- NOTE | 2020-04-07 10:37 | NUR ---
SEEN AND EXAMINED BY DR. QUIÑONEZ. PT WILL HAVE HD TODAY. HD NURSE RICHARDSON IS AWARE.
[2020-04-07] MEDS: fentaNYL citrate - 50mL vial 2.5 MG in NACL 0.9% 200 ML IV PRN (10:51)
[2020-04-07] MEDS: INSULIN LISPRO SLIDING SCALE 100 UNITS/ML VIAL SUBQ PRN ×2 (12:34→17:22)
[2020-04-07] MEDS ORDERED: HEPARIN PER PHARMACY MC PRN (12:55)
--- NOTE | 2020-04-07 13:00 | NUR ---
HD STARTED. NO S/S OF CONDITION. WILL CONTINUE TO MONITOR.
[2020-04-07] MEDS: NOREPINEPHRINE 16 MG in DEXTROSE 5% 250 ML IV PRN (13:11)
--- NOTE | 2020-04-07 13:11 | NUR ---
LO BP NOTED. STARTED LEVO GGT AT 2 MCG/MIN.
--- NOTE | 2020-04-07 15:09 | NUR ---
TITRATED LEVOPHED TO 2 MCG/MIN. HD DONE WITH 2L OUTPUT. NO CHANGE OF CONDITION.
--- NOTE | 2020-04-07 17:14 | NUR ---
LEVOPHED GTT HELD. CURRENT BP 136/71 MMHG.
[2020-04-07] MEDS: hePARIN / DEXT 5% PREMIX 250 ML IV SCH (19:08)
--- NOTE | 2020-04-07 19:15 | NUR ---
ENDORSED PT TO SEASONING SPRAYER RN. NO CHANGE OF CONDITION. POC REVIEWED AND DISCUSSED.
--- NOTE | 2020-04-07 22:00 | NUR ---
TUBE FEEDING HELD FOR 90 MINUTES AFTER 600ML OF RESIDUAL DISCARDED FROM OGT. NEW IV STARTED IN RIGHT WRIST FOR HEPARIN DRIP. PATIENT TOLERATING WEANING OF VENT SETTINGS WELL
[2020-04-08] VITALS (30 sets, daily range): BP systolic 97–138; BP diastolic 47–81
[2020-04-08] MEDS: BLOOD GLUCOSE MONITORING 1 DEV DEV FS SCH ×4 (00:18→18:47)
[2020-04-08] MEDS: PROPOFOL 1000 MG/100 ML PREMIX 100 ML IV PRN ×2 (00:45→13:39)
[2020-04-08] MEDS: hePARIN / DEXT 5% PREMIX 250 ML IV SCH ×3 (03:36→20:22)
[2020-04-08] MEDS: METOCLOPRAMIDE 10 MG/2 ML INJ VIAL IVP SCH ×3 (04:31→20:13)
[2020-04-08] MEDS: MIDAZOLAM MDV 100 MG in NACL 0.9% 80 ML IV PRN (04:52)
[2020-04-08 06:03] LABS: ANION GAP 17.5 (8-16); CARBON DIOXIDE 22.7 mmol/L (21-32); POTASSIUM 4.2 mmol/L (3.5-5.1)
[2020-04-08 06:41] LABS: MAGNESIUM 2.3 mg/dL (1.8-2.4); PHOSPHORUS 7.1 mg/dL (2.5-4.9)
[2020-04-08 07:24] LABS: HEMOGLOBIN 10.1 g/dL (12.0-16.0); MEAN CORPUSCULAR HEMOGLOBIN 28 pg (27-31); MEAN CORPUSCULAR HGB CONC 33 g/dL (33-37); PLATELET COUNT (AUTO) 369 K/uL (140-450); RED CELL DISTRIBUTION WIDTH 15.5 % (11.6-13.7); WHITE BLOOD COUNT (AUTO) 21.3 K/uL (4.8-10.8)
[2020-04-08 08:16] LABS: LYMPHOCYTES % (MANUAL) 3 % (20-46); MONOCYTES % (MANUAL) 5 % (5-12)
[2020-04-08] MEDS: LINEZOLID 600MG PREMIX 300 ML IV SCH ×2 (09:51→20:29)
[2020-04-08] MEDS: MEROPENEM 500 MG in NACL 0.9% 50 ML IV SCH ×2 (09:51→21:07)
[2020-04-08] MEDS: PANTOPRAZOLE 40 MG INJ VIAL IVP SCH (09:58)
[2020-04-08] MEDS: DEXAMETHASONE 4 MG/ML VIAL IVP SCH (09:59)
[2020-04-08] MEDS: ASPIRIN 81 MG TAB.CHEW PO SCH (09:59)
[2020-04-08] MEDS: fentaNYL citrate - 50mL vial 2.5 MG in NACL 0.9% 200 ML IV PRN (10:52)
[2020-04-08] MEDS: INSULIN LISPRO SLIDING SCALE 100 UNITS/ML VIAL SUBQ PRN (12:51)
--- NOTE | 2020-04-08 15:25 | NUR ---
RESPIRATORY DECREASED FIOS TO 35% AT THIS TIME
--- NOTE | 2020-04-08 15:45 | NUR ---
04/08/20 RD FOLLOW UP COMPLETED PLEASE REFER TO NUTRITION ASSESSMENT UNDER CARE ACTIVITY FOR ESTIMATED NUTRITIONAL NEEDS. 1. CONTINUE NEPRO 1.8 @ 40 ML/HR -THIS PROVIDES 1728 KCAL AND 78 GM OF PROTEIN, MEETING 100% OF ESTIMATED KCAL AND PROTEIN NEEDS. 2. FLUSH PER MD, CURRENTLY 100 ML Q6H 3. CONTINUE REGLAN FOR GASTRIC MOTILITY 4. RD TO FOLLOW-UP 2-3 DAYS, HIGH RISK SANDY HANSEN RD
--- NOTE | 2020-04-08 19:29 | NUR ---
FOUND PATIENT IN SUPINE POSITION. PATIENT IS INTUBATED WITH ETT SIZE 7.5 AND SECURED WITH BITTING BLOCK ANCHOR-FAST AT 25 cm @ TEETH. PATIENT IS ON VENT SETTINGS: AC/PC 18, RR 30, PEEP5, FiO2 35% WITH SPO2 OF 95%. NOTICED ADEQUATE CHEST RISE AND FALL. AMBU BAG AT BEDSIDE. VENT IS PLUGGED IN RED OUTLET. ALARMS SET AND AUDIBLE TO ENVIRONMENT. SUCTIONED SMALL AMOUNT OF YELLOW THICK SECRETIONS FROM ETT. SUCTIONED CLEAR WHITE THIN SECRETIONS FROM THE MOUTH DURING ORAL CARE AND PT TOLERATED PROCEDURE WELL. AIRWAY IS PATENT. AUSCULTATION REVEALS BILATERAL RALES BREATH SOUNDS ON THE UPPER LOBES AND RALES/DIMINISHED ON THE LOWER BASES. PT IS IN NO APPARENT RESPIRATORY DISTRESS AT THIS TIME. PT IS NOT WHEEZING AND NO SOB NOTED, PRN TX NOT INDICATED AT THIS TIME. WILL CONTINUE TO MONITOR PATIENT.
[2020-04-09] VITALS (73 sets, daily range): BP systolic 83–143; BP diastolic 43–97
[2020-04-09] MEDS: BLOOD GLUCOSE MONITORING 1 DEV DEV FS SCH ×5 (00:24→23:52)
[2020-04-09] MEDS: INSULIN LISPRO SLIDING SCALE 100 UNITS/ML VIAL SUBQ PRN ×5 (00:27→23:53)
--- NOTE | 2020-04-09 04:14 | NUR ---
CENTTRAL LINE DRESSING CHANGE DONE WITH CHLOREHEXIDINE BATH DONE Addendum: 04/09/20 at 0416 by Agency Mandy CORDERO RN Amended: Links added.
[2020-04-09] MEDS: METOCLOPRAMIDE 10 MG/2 ML INJ VIAL IVP SCH ×3 (04:42→21:07)
[2020-04-09] MEDS: PROPOFOL 1000 MG/100 ML PREMIX 100 ML IV PRN (05:10)
[2020-04-09 05:43] LABS: BASOPHILS % (AUTO) 0.1 % (0.0-2.0); HEMATOCRIT 30.2 % (36-48); HEMOGLOBIN 9.6 g/dL (12.0-16.0); LYMPHOCYTES % (AUTO) 4.4 % (20.5-51.1); MEAN CORPUSCULAR HEMOGLOBIN 27 pg (27-31); MEAN CORPUSCULAR HGB CONC 32 g/dL (33-37); MEAN CORPUSCULAR VOLUME 86.5 fL (80-94); MONOCYTES # (AUTO) 0.8 K/uL (0.8-1.0); MONOCYTES % (AUTO) 3.7 % (1.7-9.3); NEUTROPHILS # (AUTO) 20.1 K/uL (1.8-7.7); NEUTROPHILS % (AUTO) 91.8 % (42.2-75.2); PLATELET COUNT (AUTO) 344 K/uL (140-450); RED BLOOD CELL COUNT(AUTO) 3.49 MIL/uL (4.20-5.40); RED CELL DISTRIBUTION WIDTH 15.4 % (11.6-13.7); WHITE BLOOD COUNT (AUTO) 21.9 K/uL (4.8-10.8)
[2020-04-09] MEDS: fentaNYL citrate - 50mL vial 2.5 MG in NACL 0.9% 200 ML IV PRN (06:23)
[2020-04-09 06:28] LABS: CARBON DIOXIDE 22.1 mmol/L (21-32); POTASSIUM 4.1 mmol/L (3.5-5.1)
[2020-04-09 06:47] LABS: MAGNESIUM 2.5 mg/dL (1.8-2.4); PHOSPHORUS 8.4 mg/dL (2.5-4.9)
[2020-04-09 06:58] LABS: CREATININE 5.3 mg/dL (0.6-1.3)
--- NOTE | 2020-04-09 07:25 | NUR ---
RECEIVED WINDOW-SIDE REPORT FROM CELLOPHANE WORKER NURSE LANE FOR CONTINUITY OF CARE. PATIENT IS LYING ON BED COMFORTABLY, FLACC 0, SEDATED TO RASS -3, DRY WEIGHT 110.2 KG. EVEN AND UNLABORED CHEST RISES NOTED, PATIENT IS INTUBATED ETT TO VENT, AC/PC FIO2 35%, RATE 18, PEEP 5, SPO2 95% AT THIS TIME. RIJ FOR HD, CLEAN AND INTACT, R WRIST 20G, LIJ TRIPLE LUMEN, RUNNING FENTANYL 1 MCG/KG/HR, VERSED 2 MG/HR, PROPOFOL 8 MCG/KG/HR, HEPARIN 2,170 UNIT/HR, AND NS 5 ML/HR TKO. SKIN CLEAN AND DRY, LEFT FOOT PINKY TOE AND BIG TOE AMPUTATED, DARK PURPLE DISCOLORATION AROUND REMAINING DIGITS, AND ON RIGHT FOOT ALL TOES AMPUTATED , DARK PURPLE DISCOLORATION PRESENT AROUND DISTAL PORTION OF FOOT. OGT IN PLACE, RUNNING NEPRO 10 ML/HR AND WATER FLUSH 100 ML/Q6H. SORIANO IN PLACE, RUNNING WITH GRAVITY, DARK KERA URINE IN BAG NOTED. BUE/BLE GENERALIZED WEAKNESS. SAFETY MEASURES IN PLACE. BED IN LOW POSITION, HOB ELEVATED 35 DEGREE, AND BED LOCKED.
--- NOTE | 2020-04-09 07:28 | NUR ---
DR CARABALLO IS ROUNDING ON PATIENT, UPDATED MD WITH PATIENT'S CONDITION.
--- NOTE | 2020-04-09 08:53 | NUR ---
DR JURADO IS ROUNDING ON PATIENT, UPDATED MD WITH PATIENT'S CONDITION.
[2020-04-09] MEDS: PANTOPRAZOLE 40 MG INJ VIAL IVP SCH (08:57)
[2020-04-09] MEDS: DEXAMETHASONE 4 MG/ML VIAL IVP SCH (08:57)
[2020-04-09] MEDS: ASPIRIN 81 MG TAB.CHEW PO SCH (08:57)
[2020-04-09] MEDS: LINEZOLID 600MG PREMIX 300 ML IV SCH ×2 (08:58→21:07)
[2020-04-09] MEDS: hePARIN / DEXT 5% PREMIX 250 ML IV SCH ×2 (08:58→21:10)
[2020-04-09] MEDS: MEROPENEM 500 MG in NACL 0.9% 50 ML IV SCH ×2 (09:00→21:13)
--- NOTE | 2020-04-09 09:15 | NUR ---
PTT 58.8, WITHIN THERAPEUTIC RANGE, THIS IS THE 2ND WITHIN THERAPEUTIC RANGE, NO CHANGE IN RATE, CONTINUE WITH 2,170 UNIT/HR AND WILL ORDER THE NEXT 24 HR DRAW TOMORROW AT 0800.
--- NOTE | 2020-04-09 09:38 | NUR ---
CHECKED OGT RESIDUAL RECEIVED 30 ML, FLUSHED. ADMINISTERED SCHEDULED AM MEDS, FLUSHED BEFORE AND AFTER MEDS. PROVIDED AM HYGIENE CARE, ORAL CARE, SORIANO CARE, SKIN CARE, AND CHG BATH. WITH ASSIST, CHANGED ALL DIRTY LINENS, REPOSITIONED PATIENT, PILLOWS USED TO OFFLOAD PRESSURE, PATIENT TOLERATED FAIR, FLACC 0, SEDATED TO RASS -3 WITH PROPOFOL 8 MCG/KG/HR, FENTANYL 1 MCG/KG/HR AND VERSED 2 MG/HR. RESPIRATION EVEN AND UNLABORED ON AC/PC FIO2 35%, RATE 18, PEEP 5, SPO2 AT 93% AT THIS TIME. OGT IN GOOD POSITION, RUNNING NEPRO AT 40 ML/HR. SAFETY MEASURES IN PLACE. HOB ELEVATED 35 DEGREE, BED IN LOW POSITION AND BED LOCKED.
--- NOTE | 2020-04-09 09:42 | NUR ---
COVID PCR AND CAROLYN SPECIMENS COLLECTED AND DELIVERED TO LAB.
--- NOTE | 2020-04-09 10:13 | NUR ---
DR JURADO MADE AWARE PATIENT IS COVID ANTIGEN RAPID POSITIVE.
--- NOTE | 2020-04-09 10:22 | NUR ---
SCHEDULED MEROPENEM ADMINISTERED. SAFETY MEASURES IN PLACE.
--- NOTE | 2020-04-09 11:51 | NUR ---
BLOOD GLUCOSE 239, 4 UNIT HUMALOG COVERED. PROVIDED ORAL CARE, AND REPOSITIONED PATIENT, PILLOWS USED TO OFFLOAD PRESSURE, PATIENT TOLERATED FAIR, FLACC 0. RESPIRATION EVEN AND UNLABORED, SPO2 AT 91% AT THIS TIME. SAFETY MEASURES IN PLACE.
[2020-04-09] MEDS: NOREPINEPHRINE 16 MG in DEXTROSE 5% 250 ML IV PRN (13:27)
--- NOTE | 2020-04-09 13:29 | NUR ---
LEVOPHED STARTED AT 2 MCG FOR BP SUPPORT DURING DIALYSIS. ADMINISTERED SCHEDULED METOCLOPRAMIDE PER MD ORDER. ARIELLE HD RN IS BY BEDSIDE MONITORING VITAL SINGS. SAFETY MEASURES IN PLACE.
--- NOTE | 2020-04-09 14:16 | NUR ---
10,000 UNIT HEPARIN PROVIDED TO [facility] HD RN TO FLUSH PORTS.
--- NOTE | 2020-04-09 14:31 | NUR ---
RECEIVED CALL FROM PATIENT'S SON NAHOMY, UPDATED HIM WITH PATIENT'S CURRENT CONDITION, NAHOMY WAS AWARE OF PATIENT'S CONDITION AND PLAN OF CARE.
--- NOTE | 2020-04-09 15:15 | NUR ---
ORAL CARE PROVIDED. WITH ASSIST, REPOSITIONED PATIENT COMFORTABLY, PILLOWS AND HEEL PROTECTORS USED TO OFFLOAD PRESSURE, PATIENT TOLERATED FAIR, FLACC 0. RESPIRATION EVEN AND UNLABORED ON AC/PC FIO2 35%, RATE 18, PEEP 5, SPO2 92% AT THIS TIME. SAFETY MEASURES IN PLACE.
--- NOTE | 2020-04-09 15:49 | NUR ---
DR BUSTAMANTE IS ROUNDING ON PATIENT, UPDATED MD WITH CONDITION.
--- NOTE | 2020-04-09 16:41 | NUR ---
CHECKED OGT RESIDUAL, RECEIVED 45 ML. STARTED A NEW BOTTLE OF NEPRO, CONTINUE RUNNING AT 40 ML/HR AND WATER FLUSH 100 ML/Q6H. CHANGED TO NEW TUBING.
--- NOTE | 2020-04-09 18:05 | NUR ---
PATIENT HAS A LARGE BROWN BM, PROVIDED HYGIENE CARE, CHANGED ALL DIRTY LINEN. IV ON R WRIST INFILTRATED, REMOVED, CANNULA INTACT, MINIMAL BLEEDING ON IV SITE. NO SIGNS OF ACUTE DISTRESS NOTED. POSITIONED PATIENT COMFORTABLY, PILLOWS AND HEEL PROTECTORS USED TO OFFLOAD PRESSURE, PATIENT TOLERATED FAIR, FLACC 0. EYES OPEN OCCASIONALLY. RESPIRATION EVEN AND UNLABORED ON FIO2 35%, SPO3 AT 97%. SAFETY MEASURES IN PLACE.
--- NOTE | 2020-04-09 18:17 | NUR ---
BLOOD GLUCOSE 331, 8 UNIT HUMALOG COVERED. PATIENT IS RESTING ON BED COMFORTABLY, FLACC 0. RESPIRATION EVEN AND UNLABORED. NO SIGNS OF ACUTE DISTRESS NOTED. SAFETY MEASURES IN PLACE.
--- NOTE | 2020-04-09 19:21 | NUR ---
ENDORSED PATIENT TO FRENCH LECTURER NURSE RAD FOR CONTINUITY OF CARE. SAFETY MEASURES IN PLACE.
[2020-04-09] MEDS: ACETAMINOPHEN 650 MG SUPP RC PRN (19:53)
[2020-04-10] VITALS (38 sets, daily range): BP systolic 96–153; BP diastolic 56–90
[2020-04-10] MEDS: PROPOFOL 1000 MG/100 ML PREMIX 100 ML IV PRN ×2 (02:03→17:06)
[2020-04-10 05:22] LABS: APPEARANCE,URINE CLOUDY (CLEAR); BILIRUBIN,URINE NEGATIVE (NEGATIVE); BLOOD, URINE 3+ (NEGATIVE); COLOR,URINE YELLOW (YELLOW); LEUKOCYTE ESTERASE ,URINE 2+ (NEGATIVE); NITRITE, URINE NEGATIVE (NEGATIVE); UGLUCOSE NEGATIVE (NEGATIVE)
[2020-04-10 05:24] LABS: HEMATOCRIT 30.6 % (36-48); HEMOGLOBIN 10.1 g/dL (12.0-16.0); MEAN CORPUSCULAR HEMOGLOBIN 28 pg (27-31); MEAN CORPUSCULAR HGB CONC 33 g/dL (33-37); MEAN CORPUSCULAR VOLUME 85.1 fL (80-94); PLATELET COUNT (AUTO) 321 K/uL (140-450); RED BLOOD CELL COUNT(AUTO) 3.59 MIL/uL (4.20-5.40); RED CELL DISTRIBUTION WIDTH 14.9 % (11.6-13.7)
[2020-04-10 05:35] LABS: YEAST,URINE Many /HPF (None Seen)
[2020-04-10] MEDS: METOCLOPRAMIDE 10 MG/2 ML INJ VIAL IVP SCH ×3 (05:47→20:03)
[2020-04-10] MEDS: BLOOD GLUCOSE MONITORING 1 DEV DEV FS SCH ×4 (05:52→23:21)
[2020-04-10] MEDS: INSULIN LISPRO SLIDING SCALE 100 UNITS/ML VIAL SUBQ PRN ×4 (05:55→23:25)
[2020-04-10] MEDS: fentaNYL citrate - 50mL vial 2.5 MG in NACL 0.9% 200 ML IV PRN (05:57)
[2020-04-10 06:03] LABS: MAGNESIUM 2.1 mg/dL (1.8-2.4); PHOSPHORUS 5.2 mg/dL (2.5-4.9)
[2020-04-10 06:11] LABS: ANION GAP 17.3 (8-16); CARBON DIOXIDE 22.2 mmol/L (21-32); POTASSIUM 3.5 mmol/L (3.5-5.1)
[2020-04-10 07:37] LABS: WHITE BLOOD COUNT (AUTO) 25.6 K/uL (4.8-10.8)
[2020-04-10 07:38] LABS: LYMPHOCYTES % (MANUAL) 4 % (20-46); MONOCYTES % (MANUAL) 5 % (5-12)
[2020-04-10 08:05] LABS: CREATININE 4.8 mg/dL (0.6-1.3)
--- NOTE | 2020-04-10 08:07 | NUR ---
DR CARABALLO HERE AWARE OF BUN 95 AND CREA 4.8
[2020-04-10] MEDS: MEROPENEM 500 MG in NACL 0.9% 50 ML IV SCH ×2 (08:43→20:02)
[2020-04-10] MEDS: hePARIN / DEXT 5% PREMIX 250 ML IV SCH ×2 (09:16→20:59)
[2020-04-10] MEDS: LINEZOLID 600MG PREMIX 300 ML IV SCH ×2 (09:29→20:02)
[2020-04-10] MEDS: ASPIRIN 81 MG TAB.CHEW PO SCH (09:30)
[2020-04-10] MEDS: PANTOPRAZOLE 40 MG INJ VIAL IVP SCH (09:30)
[2020-04-10] MEDS: DEXAMETHASONE 4 MG/ML VIAL IVP SCH (09:30)
--- NOTE | 2020-04-10 12:42 | NUR ---
DR ORTIZ HERE AWARE OF LOW B/P IN AM ,HD NURSE HERE DR ORTIZ STATED TO HD NURSE TO START ALBUMIN. Addendum: 04/10/20 at 1248 by Agency 04 RN RN NOTE FOR WRONG PT
--- NOTE | 2020-04-10 17:27 | NUR ---
CALLED MARNIE AT [phone] REGARDING BLOOD GLUCOSE 411, AWAITING ORDERS
--- NOTE | 2020-04-10 18:27 | NUR ---
DR JURADO CALLED ,STATED TO GIVE 10UNITS OF HUMALOG AND CONTINUE TO FOLLOW THE PROTOCOL.
[2020-04-10] MEDS: MIDAZOLAM MDV 100 MG in NACL 0.9% 80 ML IV PRN (18:46)
--- NOTE | 2020-04-10 19:30 | NUR ---
PATIENT CARE AND REPORT RECEIVED FROM GUILLERMINA RN. PATIENT ETT TO VENT, HOB 30 DEGREES, RASS -3, VENT SETTINGS AT AC/PC, FIO2 28%, RR 30, AND PEEP 5. PATIENT HAS OG TUBE IN PLACE, INTACT, AND SECURED, TOLERATING VENT SETTINGS WELL. TUBE FEEDING ORDER IS NEPRO 40 ML/HR, FWF 100 Q6, RESIDUALS 0 ML, TOLERATING CURRENT FEEDING WELL. PATIENT CONNECTED TO CONTINUOUS CARDIAC TELE MONITORING, HR 90, RR 32, WILL CONTINUE TO CLOSELY MONITOR. IV ACCESS SITES ARE LEFT IJ TRIPLE LUMEN AND RIGHT IJ HD CATH. IV DRIPS CURRENTLY RUNNING ARE LEVOPHED AT 2 MCG/MIN, FENTANYL AT 1 MCG/KG/HR, PROPOFOL AT 8 MCG/KG/MIN, HEPARIN AT 2170 UNITS/HR, VERSED 1 MG/HR, AND IVF TKO 5 ML/HR. PATIENT WEIGHT IS 107 KG. PATIENT HAS A SORIANO CATH IN PLACE, INTACT, SECURED AND DRAINING WELL. PATIENT IS BEING OFFLOADED FROM PRESSURE POINTS WITH USE OF PILLOWS AND FREQUENT REPOSITIONING. SKINS SHOW DISTAL LEFT FOOT PURPLE WITH BIG TOE AND PINKY TOE AMPUTATED. DISTAL RIGHT FOOT PURPLE AND ALL TOES AMPUTATED. THE BED IS LOCKED, LOWERED AND PATIENT PLACED INTO A POSTION OF COMFORT AND SAFETY. WILL CONTINUE TO CLOSELY MONITOR AND FREQUENTLY ROUND THROUGHOUT THE ENTIRE SHIFT.
--- NOTE | 2020-04-10 20:00 | NUR ---
VAP ORAL CARE, ET TUBE/ORAL SUCTIONING, HYGIENE, REPOSITIONING AND SAFETY CHECKS PROVIDED. PATIENT HR 84 AND RR 30 ON THE MONITOR, CONTINUING TO TLERATE CURRENT VENT SETTINGS WELL. CONTINUES TO BE RASS -3 PER ORDER, SLEEPING/RESTING. WILL CONTINUE TO CLOSELY MONITOR AND FREQUENTLY ROUND.
--- NOTE | 2020-04-10 22:00 | NUR ---
PATIENT CONTINUING TO REST IN A POSITION OF COMFORT, RASS -3, INTUBATED SEDATED. MONITOR SHOWS HR 84 BPM, RR 24, NO SIGNS OF DISTRESS. TOLERATING CURRENT THERAPIES WELL. WILL CONTINUE TO CLOSELY MONITOR AND FREQUENTLY ROUND.
--- NOTE | 2020-04-10 23:15 | NUR ---
ACCUCHECK Q6, BLOOD SUGAR WAS 336, COVERAGE GIVEN.
[2020-04-11] VITALS (33 sets, daily range): BP systolic 86–168; BP diastolic 53–100
--- NOTE | 2020-04-11 | NUR ---
VAP ORAL CARE, REPOSITIONING, ET/ORAL SUCTIONING, SAFETY CHECKS AND HYGIENE PROVIDED. PATIENT CONTINUES TO REST, CALM, RASS -3. MONITOR SHOWS HR 78 BPM, RR 22, TOLERATING CURRENT THERAPIES WELL. WILL CONTINUE TO CLOSELY MONITOR AND FREQUENTLY ROUND.
--- NOTE | 2020-04-11 02:00 | NUR ---
PATIENT CONTINUING TO REST IN A POSITION OF COMFORT, INTUBATED, SEDATED, CALM. TOLERATING CURRENT THERAPIES AND VENT SETTINGS WELL. MONITOR SHOWS 76 BPM, RR 20, NO SIGNS OF DISTRESS. WILL CONTINUE TO CLOSELY MONITOR AND FREQUENTLY ROUND.
--- NOTE | 2020-04-11 04:00 | NUR ---
BED BATH, LINEN CHANGE, BELLE CARE, VAP ORAL CARE, ET/ORAL SUCTIONING, HYGIENE, SAFETY CHECKS AND REPOSITIONING PROVIDED. PATIENT CONTINUING TO TOLERATE CURRENT THERAPIES WELL. WILL CONTINUE TO CLOSELY MONITOR AND FREQUENTLY ROUND.
[2020-04-11] MEDS: METOCLOPRAMIDE 10 MG/2 ML INJ VIAL IVP SCH ×3 (04:36→20:19)
[2020-04-11] MEDS: PROPOFOL 1000 MG/100 ML PREMIX 100 ML IV PRN ×3 (05:02→18:22)
[2020-04-11] MEDS: BLOOD GLUCOSE MONITORING 1 DEV DEV FS SCH ×5 (05:12→23:30)
[2020-04-11] MEDS: INSULIN LISPRO SLIDING SCALE 100 UNITS/ML VIAL SUBQ PRN ×4 (05:13→23:23)
--- NOTE | 2020-04-11 05:20 | NUR ---
ACCUCHECK, BLOOD GLUCOSE 266, COVERAGE GIVEN.
--- NOTE | 2020-04-11 06:00 | NUR ---
PATIENT CONTINUES TO REST IN A POSITION OF COMFORT, RASS -3, INTUBATED AND SEDATED. MONITOR SHOWS HR 74 BPM, RR 24, TOLERATING CURRENT VENT SETTINGS AND THERAPIES WELL. WILL CONTINUE TO CLOSELY MONITOR AND FREQUENTLY ROUND.
[2020-04-11 06:18] LABS: BASOPHILS # (AUTO) 0.1 K/uL (0.00-0.22); BASOPHILS % (AUTO) 0.4 % (0.0-2.0); EOSINOPHILS % (AUTO) 0.1 % (0.0-4.0); HEMATOCRIT 29.3 % (36-48); HEMOGLOBIN 9.5 g/dL (12.0-16.0); LYMPHOCYTES % (AUTO) 4.2 % (20.5-51.1); MEAN CORPUSCULAR HEMOGLOBIN 28 pg (27-31); MEAN CORPUSCULAR HGB CONC 33 g/dL (33-37); MEAN CORPUSCULAR VOLUME 85.2 fL (80-94); MONOCYTES % (AUTO) 3.9 % (1.7-9.3); NEUTROPHILS # (AUTO) 22.4 K/uL (1.8-7.7); NEUTROPHILS % (AUTO) 91.4 % (42.2-75.2); PLATELET COUNT (AUTO) 263 K/uL (140-450); RED BLOOD CELL COUNT(AUTO) 3.44 MIL/uL (4.20-5.40); RED CELL DISTRIBUTION WIDTH 14.8 % (11.6-13.7); WHITE BLOOD COUNT (AUTO) 24.5 K/uL (4.8-10.8)
[2020-04-11 06:23] LABS: ANION GAP 16.6 (8-16); CARBON DIOXIDE 22.3 mmol/L (21-32); POTASSIUM 3.9 mmol/L (3.5-5.1)
[2020-04-11 06:28] LABS: CREATININE 5.1 mg/dL (0.6-1.3)
[2020-04-11 06:32] LABS: MAGNESIUM 2.3 mg/dL (1.8-2.4); PHOSPHORUS 6.8 mg/dL (2.5-4.9)
[2020-04-11] MEDS: fentaNYL citrate - 50mL vial 2.5 MG in NACL 0.9% 200 ML IV PRN (06:50)
--- NOTE | 2020-04-11 07:15 | NUR ---
PATIENT CARE AND REPORT ENDORSED TO GUILLERMINA CORDERO.
--- NOTE | 2020-04-11 07:16 | NUR ---
REPORT RECEIVED FR NIGHT NURSE, PT VENTED VIA ETT AC/PC MODE OF 30, FIO2 28%,SATURATION 99%, NOT IN DISTRESS, WITH OGT INTACT TO CONTINUOUS FEEDING OFNEPRO AT 40 MLS/HR, WITH SORIANO CATHETER PATENT CONNECTED TO DRAINAGE BAG, ON PROPOFOL DRIP AT 15 MCG/KG/MIN, TO KEEP RASS OF -3 FENTANYL AT 1 MCG/KG/HR, VERSED AT 1MG/HR, HEPARIN AT 2000UNITS/HR. VSS STABLE.CONTINUE TO OBSERVE.
[2020-04-11] MEDS: hePARIN / DEXT 5% PREMIX 250 ML IV SCH ×3 (07:59→21:41)
[2020-04-11] MEDS: ASPIRIN 81 MG TAB.CHEW PO SCH (08:05)
[2020-04-11] MEDS: PANTOPRAZOLE 40 MG INJ VIAL IVP SCH (08:06)
[2020-04-11] MEDS: MEROPENEM 500 MG in NACL 0.9% 50 ML IV SCH ×2 (08:08→20:14)
[2020-04-11] MEDS: DEXAMETHASONE 4 MG/ML VIAL IVP SCH (08:25)
--- NOTE | 2020-04-11 08:40 | NUR ---
DIALYSIS COMMENCED BY DIALYSIS NURSE, AT 0900 BP DROPPED TO 86/53, LEVOPHED COMMENCED AT 4MCG/MIN, O2 SATURATION DROPPED TO 70, FIO2 BUMPED TO 40% FOR NOW.CONTINUE TO MONITOR
[2020-04-11] MEDS: LINEZOLID 600MG PREMIX 300 ML IV SCH ×2 (09:29→20:36)
--- NOTE | 2020-04-11 10:30 | NUR ---
LEVOPHED TITRATED ACCORDING, VSS, SATURATING WELL ,
--- NOTE | 2020-04-11 13:23 | NUR ---
PTT RESULT-80.9, HEPARIN DRIP DECREASED FROM 1999 TO 1830 UNITS/HR, CONTINUE T 0BSERVE
--- NOTE | 2020-04-11 14:28 | NUR ---
DR MACDONALD HERE,SEEN PT,NOTED ALL PARAMETERS, CONTINUE PLAN OF CARE
--- NOTE | 2020-04-11 14:32 | NUR ---
SATURATING WELL, 99%, FIO2 BACK TO 28%,CONTINUE TO OBSERVE.
--- NOTE | 2020-04-11 14:37 | NUR ---
04/11/20 RD FOLLOW UP COMPLETED PLEASE REFER TO NUTRITION PROGRESS NOTE UNDER CARE ACTIVITY FOR ESTIMATED NUTRITION NEEDS. RD RECOMMENDATIONS: 1.CONTINUE NEPRO 1.8 @ 40 ML/HR -THIS PROVIDES 1728 KCAL AND 78 GM OF PROTEIN, MEETING 100% OF ESTIMATED KCAL AND PROTEIN NEEDS. 2. FLUSH PER MD, CURRENTLY 100 ML Q6H 3. CONTINUE REGLAN FOR GASTRIC MOTILITY 4. RD TO FOLLOW-UP 2-3 DAYS, HIGH RISK TOY TOURE, RD
[2020-04-11] MEDS ORDERED: FLUCONAZOLE 200 MG/NS PREMIX 100 ML IV SCH (15:00)
--- NOTE | 2020-04-11 16:10 | NUR ---
DR PLASCENCIA HERE, SEEN PT, NOTED ALLPARAMETERS,CONTINUE PLAN OF CARE
--- NOTE | 2020-04-11 17:22 | NUR ---
AFTERNOON CARE DONE,ALL CARES ATTENDED,VSS,SATURATING GOOD
--- NOTE | 2020-04-11 18:55 | NUR ---
PT STILL VENTED VIA ETT WITH SAME VENT SETTING.,SATURATING WELL. ALL CARES ATTENDED,
--- NOTE | 2020-04-11 19:01 | NUR ---
ENDORSED TO NIGHT NURSE WITH SAME VENT SETTING, PROPOFOL DRIP,VERSED ,\ DRIP,FENTANYL DRIP, HEPARIN AT 1830 UNITS/HR
--- NOTE | 2020-04-11 19:30 | NUR ---
PATIENT CARE AND REPORT RECEIVED FROM GUILLERMINA RN. PATIENT ETT TO VENT, HOB 30 DEGREES, IN A POSITION OF COMFORT. VENT SETTINGS CURRENTLY AC/PC, FIO2 28%, RR 30, AND PEEP 5. PATIENT TOLERATING VENT SETTINGS WELL. PATIENT HAS AN OG TUBE IN PLACE, PATENT AND SECURED. TUBE FEEDING ORDER IS NEPRO WITH A GOAL OF 40 ML/HR, FWF 100 ML, Q6. RESIDUALS ARE CURRENTLY 5 ML, TOLERATING TUBE FEED WELL, WILL CONTINUE TO MONITOR. PATIENT IN CONTINUOS TELE MONITORING, HR 76 BPM, RR 22, NO SIGNS OF DISTRESS. IV ACCESS SITES INCLUDE LEFT IJ TRIPLE LUMEN AND RIGHT IJ GARIMA CATH FOR HD. IV DRIPS CURRENTLY RUNNING ARE FENTANYL 1 MCG/KG/HR, VERSED 1 MG/HR, PROPOFOL 15 MCG/KG/MIN, IVF 5 ML/HR TKO, AND HEPARIN AT 1830 UNITS/HR. PATIENT WEIGHT IS 107 KG. PATIENT HAS A SORIANO CATH IN PLACE, DRAINING WELL, INTACT, PATENT AND SECURED. SKINS SHOW LEFT FOOT AMPUTATION OF THE BIG TOE AND PINKY TOE WITH PURPLE DISCOLORATION OF THE DISTAL FOOT. RIGHT FOOT SHOWS AMPUTATION OF ALL TOES AND PURPLE DISCOLORATION OF THE DISTAL FOOT. PATIENT CURRENTLY BEING OFFLOADED FROM PRESSURE POINTS WITH USE OF PILLOWS AND FREQUENT REPOSITIONING. BED LOWERED AND LOCKED INTO A POSITION OF SAFETY. WILL CONTINUE TO CLOSELY MONITOR AND FREQUENTLY ROUND THROUGHOUT THE SHIFT.
--- NOTE | 2020-04-11 19:35 | NUR ---
PTT LAB CAME IN AT 1845 PER DAYSHIFT, PTT LEVEL 58.5, REORDERED ANOTHER PTT LEVEL CHECK FOR 0030. PLACED THE ORDER ON THE EMAR AND CALLED THE LAB TO FOLLOW UP AND VERBALLY CONFIRM.
--- NOTE | 2020-04-11 20:00 | NUR ---
VAP ORAL CARE, ET/ORAL SUCTIONING, REPOSITIONING, HYGIENE, AND SAFETY CHECKS PROVIDED. PATIENT CONTINUES TO TOLERATE VENT SETTINGS AND CURRENT THERAPIES WELL. HR 74 BPM, RR 26, NO SIGNS OF DISTRESS NOTED. WILL CONTINUE TO CLOSELY MONITOR AND FREQUENTLY ROUND.
--- NOTE | 2020-04-11 22:00 | NUR ---
PATIENT CONTINUING TO REST IN A POSITION OF COMFORT, HOB 30 DEGREES, TOLERATING VENT SETTINGS WELL. MONITOR SHOWS HR 78 BPM, RR 26, NO SIGNS OF DISTRESS. WILL CONTINUE TO CLOSELY MONITOR AND FREQUENTLY ROUND.
[2020-04-12] VITALS (33 sets, daily range): BP systolic 108–172; BP diastolic 58–94
--- NOTE | 2020-04-12 | NUR ---
VAP ORAL CARE, ET TUBE/ORAL SUCTIONING, REPOSITIONING, HYGIENE, AND SAFETY CHECKS PROVIDED. CONTINUES TO BE RASS -3, INTUBATED AND SEDATED. PATIENT TOLERATING VENT SETTINGS WELL, WILL CONTINUE TO CLOSELY MONITOR AND FREQUENTLY ROUND.
--- NOTE | 2020-04-12 01:13 | NUR ---
LAB CALLED WITH A CRITICAL LAB FOR A PTT VALUE. PTT LEVEL 52.6, CONTINUE TO MONITOR PER PROTOCOL.
--- NOTE | 2020-04-12 02:00 | NUR ---
PATIENT RASS -3, INTUBATED AND SEDATED, RESTING IN A POSITION OF COMFORT. HOB AT 30 DEGREES, HR 80, RR 24, NO SIGNS OF DISTRESS. TOLERATING CURRENT VENT SETTINGS AND THERAPIES WELL. WILL CONTINUE TO CLOSELY MONITOR AND FREQUENTLY ROUND.
--- NOTE | 2020-04-12 04:00 | NUR ---
BED BATH, CHG BATH, LINEN CHANGE, VAP ORAL CARE, REPOSITIONING, HYGIENE, SAFETY CHECKS AND ET/ORAL SUCTIONING PROVIDED. NO SIGNS OF DISTRESS, HR 84 BPM, RR 24, TOLERATING VENT SETTINGS AN D THERAPIES WELL. WILL CONTINUE TO CLOSELY MONITOR AND FREQUENTLY ROUND.
[2020-04-12] MEDS: METOCLOPRAMIDE 10 MG/2 ML INJ VIAL IVP SCH ×3 (04:29→21:00)
[2020-04-12] MEDS: INSULIN LISPRO SLIDING SCALE 100 UNITS/ML VIAL SUBQ PRN ×4 (05:04→23:57)
[2020-04-12] MEDS: BLOOD GLUCOSE MONITORING 1 DEV DEV FS SCH ×4 (05:04→23:54)
[2020-04-12] MEDS: PROPOFOL 1000 MG/100 ML PREMIX 100 ML IV PRN ×4 (05:10→23:20)
[2020-04-12 05:29] LABS: ANION GAP 17.3 (8-16); CARBON DIOXIDE 21.8 mmol/L (21-32); POTASSIUM 4.1 mmol/L (3.5-5.1)
[2020-04-12] MEDS: fentaNYL citrate - 50mL vial 2.5 MG in NACL 0.9% 200 ML IV PRN (05:29)
[2020-04-12 05:30] LABS: HEMATOCRIT 29.4 % (36-48); HEMOGLOBIN 9.5 g/dL (12.0-16.0); MEAN CORPUSCULAR HEMOGLOBIN 28 pg (27-31); MEAN CORPUSCULAR HGB CONC 33 g/dL (33-37); MEAN CORPUSCULAR VOLUME 84.8 fL (80-94); PLATELET COUNT (AUTO) 292 K/uL (140-450); RED BLOOD CELL COUNT(AUTO) 3.46 MIL/uL (4.20-5.40); RED CELL DISTRIBUTION WIDTH 14.9 % (11.6-13.7); WHITE BLOOD COUNT (AUTO) 21.2 K/uL (4.8-10.8)
[2020-04-12 05:42] LABS: PHOSPHORUS 6.2 mg/dL (2.5-4.9)
--- NOTE | 2020-04-12 06:00 | NUR ---
PATIENT CONTINUING TO REST IN A POSITION OF COMFORT AT RASS -3, INTUBATED AND SEDATED. WILL CONTINUE TO CLOSELY MONITOR AND FREQUENTLY ROUND.
[2020-04-12 06:14] LABS: BASOPHILS % (MANUAL) 0 % (0-2); EOSINOPHILS % (MANUAL) 0 % (0-4); LYMPHOCYTES % (MANUAL) 5 % (20-46); MONOCYTES % (MANUAL) 4 % (5-12)
--- NOTE | 2020-04-12 07:15 | NUR ---
PATIENT REPORT AND CARE TRANSFERRED TO DAYSHIFT RN.
[2020-04-12] MEDS: LINEZOLID 600MG PREMIX 300 ML IV SCH ×2 (08:33→21:00)
[2020-04-12] MEDS: DEXAMETHASONE 4 MG/ML VIAL IVP SCH (08:33)
[2020-04-12] MEDS: ASPIRIN 81 MG TAB.CHEW PO SCH (08:33)
[2020-04-12] MEDS: PANTOPRAZOLE 40 MG INJ VIAL IVP SCH (08:33)
[2020-04-12] MEDS: MEROPENEM 500 MG in NACL 0.9% 50 ML IV SCH ×2 (08:34→20:57)
[2020-04-12] MEDS: hePARIN / DEXT 5% PREMIX 250 ML IV SCH ×2 (10:11→11:38)
--- NOTE | 2020-04-12 10:11 | NUR ---
PTT43.6, PER PROTOCOL TO GIVE 3300 UNITS OF HEPARIN BOLUS, AND TO INCREASE THE RATE BY 170 UNITS TOTAL OF UP 2000 UNITS PER HR.. NEXT PTT DUE AFTER 6 HRS AT 1600.
--- NOTE | 2020-04-12 12:30 | NUR ---
AWAKE, ALERT ORIENTED X2, TALKING TO HER DAUGHTER BY PHONE, PT LOOKING FOR HER WALLET AND DONNA SAID SHE HAS MOTHERS WALLET AT HOME.
--- NOTE | 2020-04-12 13:20 | NUR ---
DR MACDONALD HERE, SEEN PT, NOTED ALL PARAMETERS, WCONTINUE PLAN OF CARE.
--- NOTE | 2020-04-12 14:30 | NUR ---
ULTRASOUND VENOUS BILATERL LOWER EXTREMITIES DONE BY THE TECH. AFTERNOON CARE DONE AFTERWARDS, ALL CARES ATTENDED, ORAL CARE DONE. FEEDING WELL TOLERATED.
--- NOTE | 2020-04-12 17:13 | NUR ---
PTT RESULT -58.3 WITHIN THE THERAPEUTIC RANGE, CONTINUE SAME RATE PER PROTOCOL.NEXT PTT DUE IN 6HRS.
--- NOTE | 2020-04-12 19:12 | NUR ---
CONDITION SAME,ENDORSED TO NIGHT NURSE
--- NOTE | 2020-04-12 19:30 | NUR ---
RECEIVED CARE AND REPORT FROM GUILLERMINA CORDERO. PATIENT FOUND ETT TO VENT, HOB 30 DEGREES, VENT SETTINGS AC/PC, FIO2 28%, RR 30, AND PEEP OF 5, TOLERATING VENT SETTINGS WELL. PATIENT HAS AN OG TUBE IN PLACE, PATENT, INTACT, FLUSHING WELL AND SECURED. TUBE FEEDING ORDER IS FOR NEPRO 40 ML/HR, FWF 100 Q6, 5 ML RESIDUALS, CURRENTLY TOLERATING WELL. PATIENT ON CONTINUOUS CARDIAC MONITORING, HR 90 BPM, RR 24, NO SIGNS OF DISTRESS, WILL CONTINUE TO CLOSELY MONITOR. PATIENT IV ACCESS LEFT IJ TRIPLE LUMEN PICC LINE AND RIGHT IJ GARIMA CATH FOR HD. IV DRIPS RUNNING INCLUDE FENTANYL 1 MCG/KG/HR, VERSED 1 MG/HR, PROPOFOL AT 15 MCG/KG/MIN, IVF TKO 5 ML/HR, AND HEPARIN 2000 UNITS/HR. PATIENT WEIGHT IS CURRENTLY 108.8 KG. PATIENT HAS SORIANO CATHETER IN PLACE, PATENT, DRAINING WELL AND SECURED. PATIENT SKINS SHOW LEFT FOOT BIG TOE AND PINKY TOE AMPUTATIONS WITH PURPLE DISCOLORATION TO THE DISTAL PORTION OF THE FOOT. RIGHT FOOT ALL TOES AMPUTATED WITH PURPLE DISCOLORATION PRESENT ON THE DISTAL PORTION OF THE FOOT. PATIENT IS BEING OFFLOADED FROM PRESSURE POINTS WITH USE OF PILLOWS AND FREQUENT REPOSITIONING. BED IS LOCKED AND LOWERED INTO A POSITION OF SAFETY, WILL CONTINUE TO CLOSELY MONITOR AND FREQUENTLY ROUND THROUGHOUT THE SHIFT. Addendum: 04/13/20 at 0116 by Real Polk RN RN RASS -3, INTUBATED AND SEDATED.
--- NOTE | 2020-04-12 20:00 | NUR ---
VAP ORAL CARE, ET/ORAL SUCTIONING, SAFETY CHECKS, REPOSITIONING, AND HYGIENE PROVIDED. PATIENT TOLERATING CURRENT THERAPIES WELL. 88 BPM ON THE MONITOR, RR 20, WILL CONTINUE TO CLOSELY MONITOR AND FREQUENTLY ROUND.
--- NOTE | 2020-04-12 22:00 | NUR ---
PATIENT RESTING IN A POSITION OF COMFORT, HOB AT 30 DEGREES, RASS -3, INTUBATED AND SEDATED, TOLERATING CURRENT THERAPIES AND VENT SETTINGS WELL. WILL CONTINUE TO CLOSELY MONITOR AND FREQUENTLY ROUND.
--- NOTE | 2020-04-12 23:22 | NUR ---
LAB CALLED WITH CRITICAL LAB PTT VALUE. PTT 59.7, WITHIN THERAPEUTIC RANGE.
[2020-04-13] VITALS (29 sets, daily range): BP systolic 81–171; BP diastolic 52–114
--- NOTE | 2020-04-13 | NUR ---
VAP ORAL CARE, ET/ORAL SUCTIONING, HYGIENE, REPOSITIONING, AND SAFETY CHECKS PROVIDED. MONITOR SHOWS HR 74 BPM, RR 18, NO SIGNS OF DISTRESS. CONTINUING TO TOLERATE CURRENT VENT SETTINGS AND THERAPIES WELL. WILL CONTINUE TO CLOSELY MONITOR AND FREQUENTLY ROUND.
[2020-04-13] MEDS: hePARIN / DEXT 5% PREMIX 250 ML IV SCH ×2 (00:10→12:01)
--- NOTE | 2020-04-13 02:00 | NUR ---
PATIENT CONTINUING TO REST IN A POSITION OF COMFORT, RASS -3, INTUBATED AND SEDATED, LYING IN A POSITION OF COMFORT, HOB 30 DEGREES, TOLERATING VENT SETTINGS AND CURRENT THERAPIES. WILL CONTINUE TO CLOSELY MONITOR AND FREQUENTLY ROUND.
--- NOTE | 2020-04-13 04:00 | NUR ---
BED BATH, CHG CLEANING, BELLE CARE, VAP ORAL CARE, REPOSITIONING, HYGIENE, SAFETY CHECKS, LINEN CHANGE, OPTIFOAM CHANGE, AND ET/ORAL SUCTIONING PROVIDED. MONITOR SHOWS HR OF 86 BPM, RR 24, NO SIGNS OF DISTRESS. WILL CONTINUE TO CLOSELY MONITOR AND FREQUENTLY ROUND.
[2020-04-13] MEDS: METOCLOPRAMIDE 10 MG/2 ML INJ VIAL IVP SCH ×3 (04:06→20:29)
[2020-04-13] MEDS: PROPOFOL 1000 MG/100 ML PREMIX 100 ML IV PRN ×4 (04:10→21:43)
[2020-04-13] MEDS: BLOOD GLUCOSE MONITORING 1 DEV DEV FS SCH ×3 (05:45→17:17)
--- NOTE | 2020-04-13 06:00 | NUR ---
PATIENT CONTINUING TO TOLERATE CURRENT THERAPIES WELL, RESTING IN POSITION OF COMFORT, RASS -3, WILL CONTINUE TO CLOSELY MONITOR AND FREQUENTLY ROUND.
[2020-04-13] MEDS: fentaNYL citrate 1 MG in NACL 0.9% 80 ML IV PRN ×2 (06:17→17:47)
--- NOTE | 2020-04-13 06:37 | NUR ---
RECEIVED CRITICAL LAB VALUE OF PTT FROM THE LAB. PTT 58.6, THERAPEUTIC RANGE, CONTINUE TO FOLLOW PROTOCOL.
--- NOTE | 2020-04-13 07:00 | NUR ---
REPORT RECEIVED FR NIGHT NURSE,VENTED VIA ETT AC/PC MODE WITH 28% FIOD RATE OF30,PEEP OF 5, ON PROPOFOL DRIP AT 30 MCG/KG/MIN,VERSED DRIP AT 2 MGS/HR, FENTANYL DRIP AT 1 MCG/KG/HR,TO KEEP RASS-3, OGT INTACT TO CONTINUOUS FEEDING, WITH SORIANO CATHETER PATENT CONNECTED TO DRAINAGE BAG,. CONTINUE TO MONITOR.
--- NOTE | 2020-04-13 07:01 | NUR ---
GAVE REPORT AND ENDORSED CARE TO GUILLERMINA CORDERO.
[2020-04-13] MEDS: ASPIRIN 81 MG TAB.CHEW PO SCH (08:34)
[2020-04-13] MEDS: PANTOPRAZOLE 40 MG INJ VIAL IVP SCH (08:34)
[2020-04-13] MEDS: DEXAMETHASONE 4 MG/ML VIAL IVP SCH (08:35)
[2020-04-13] MEDS: LINEZOLID 600MG PREMIX 300 ML IV SCH ×2 (08:35→20:36)
[2020-04-13] MEDS: MEROPENEM 500 MG in NACL 0.9% 50 ML IV SCH ×2 (08:36→20:31)
--- NOTE | 2020-04-13 09:00 | NUR ---
VSS , SATURATING WELL, NOT IN DISTRESS, APPEARS COMFORTABLE., ORAL CARE DONE
--- NOTE | 2020-04-13 10:05 | NUR ---
DR MON HERE, SEEN PT, NOTED ALL PARAMETERS, CONTINUE PLAN OF CARE.
--- NOTE | 2020-04-13 10:20 | NUR ---
PT. WITH RADHA LOW HERMES SCALE AT HIGH RISK AND PT. ADMITTED WITH RLE ABOVE ANKLE AMPUTATION STUMP, DRY AND CLEAN, ISCHEMIA INTACT SKIN AND LEFT FOOT PARTIAL AMPUTATION DORSAL AND PLANTAR AREA DRY ISCHEMIA INTACT SKIN, BILATERAL FOOT COLD TO TOUCH. PT. IS ON ETT, TF. PT. SKIN MOIST TO FACE AND UPPER EXTREMITIES. PT. IS INCONTINENT OF BOWEL. TIP OF TONGUE BLISTERING, MAD TO SACRAL AND BUTTOCKS. DR. ROBIN, PODIATRY ORDER ARTERIAL US TO BLE, PENDING RESULT. RECOMMENDATIONS -ORAL CARE Q SHIFT AND OFFLOADING ETT/TF PRN -APPLY Z GUADR TO SACRAL AND BUTTOCKS AREAS MAD BID AND PRN IF SOILING, COVER AREA WITH DRY DRESSING -TURN AND REPOSITION PATIENT Q 2H -ASSESS AND MONITOR SKIN CONDITION DURING POSITION CHANGE -OFFLOAD BILATERAL LOWER LEGS BY PLACING PILLOWS UNDER CALVES AT ALL TIMES, UNLESS OTHERWISE CONTRAINDICATED -PRESSURE REDISTRIBUTION BY PLACING PILLOWS AND OFFLOADING HIPS AND SACRALCOCCYX -KEEP SKIN CLEAN AND DRY AT ALL TIMES. PLEASE CONTACT WOUND CARE NURSE FOR ANY QUESTION AND CHANGE OF WOUND CONDITION.
[2020-04-13] MEDS: INSULIN LISPRO SLIDING SCALE 100 UNITS/ML VIAL SUBQ PRN ×2 (11:43→17:16)
[2020-04-13] MEDS: MIDAZOLAM MDV 100 MG in NACL 0.9% 80 ML IV PRN (11:50)
[2020-04-13 12:23] LABS: BASOPHILS # (AUTO) 0.1 K/uL (0.00-0.22); BASOPHILS % (AUTO) 0.3 % (0.0-2.0); EOSINOPHILS # (AUTO) 0.1 K/uL (0-0.4); EOSINOPHILS % (AUTO) 0.6 % (0.0-4.0); HEMATOCRIT 27.6 % (36-48); HEMOGLOBIN 9.1 g/dL (12.0-16.0); LYMPHOCYTES # (AUTO) 0.5 K/uL (2.5-16.5); LYMPHOCYTES % (AUTO) 2.8 % (20.5-51.1); MEAN CORPUSCULAR HEMOGLOBIN 28 pg (27-31); MEAN CORPUSCULAR HGB CONC 33 g/dL (33-37); MONOCYTES # (AUTO) 0.5 K/uL (0.8-1.0); NEUTROPHILS # (AUTO) 17.2 K/uL (1.8-7.7); NEUTROPHILS % (AUTO) 93.3 % (42.2-75.2); PLATELET COUNT (AUTO) 224 K/uL (140-450); RED BLOOD CELL COUNT(AUTO) 3.25 MIL/uL (4.20-5.40); WHITE BLOOD COUNT (AUTO) 18.4 K/uL (4.8-10.8)
--- NOTE | 2020-04-13 12:30 | NUR ---
OFF PROPOFOL , RT TO PUT PT ON CPAP ORDERED AND TO CONTINUE TO MONITOR. VSS, SATURATING WELL.
[2020-04-13 12:31] LABS: MAGNESIUM 2.1 mg/dL (1.8-2.4); PHOSPHORUS 6.3 mg/dL (2.5-4.9)
[2020-04-13 12:33] LABS: ANION GAP 14.4 (8-16); CARBON DIOXIDE 23.4 mmol/L (21-32); CREATININE 3.8 mg/dL (0.6-1.3); POTASSIUM 3.8 mmol/L (3.5-5.1)
--- NOTE | 2020-04-13 13:20 | NUR ---
DR ROBIN HERE,SEEN PT, NOTED ALL PARAMETERS, SURGERY OF THE FOOT WILL BE DONE WHEN PT WAKES UP NOT UNLESS EMERGENCY., HE ORDERED VERBALLY TO DO ULTRASOUND ARTERIAL OF BILATERAL LOWER EXTREMITIES.
--- NOTE | 2020-04-13 15:00 | NUR ---
PT HAS BEEN OFF PROPOFOL,LETHARGIC BUT OPENS EYES SPONTANEOUSLY, NOT IN DISTRESS,VSS, SATURATING WELL, MOVING ALL LIMBS UNPURPOSEFULLY, CPAP MODE WELL TOLERATED. CONTINUE TO OBSERVE.
--- NOTE | 2020-04-13 16:54 | NUR ---
AFTERNOON CARE DONE, ALL CARES ATTENDED, ,PT TACHYPNEIC,APPEARS TIRED, AND GASPING, RT ARIADNA PUT BACK PT TO AC MODE WITH SAME SETTING.CONTINUE TO OBSERVE.
--- NOTE | 2020-04-13 18:53 | NUR ---
VENTED ON AC MODE, OGT INTACT, SORIANO CATHETER PATENT ,ENDORSED TO NIGHT NURSE FOR CONTINUITY OF CARE,WITH ALL THE DRIPS.
--- NOTE | 2020-04-13 19:30 | NUR ---
RECEIVED CARE AND REPORT FROM GUILLERMINA CORDERO. PATIENT ETT TO VENT, RASS -3, HOB 30 DEGREES, VENT SETTINGS AC/PC, FIO2 30%, RR 30, AND PEEP 5. PATIENT HAS AN OG TUBE IN PLACE,INTACT, PATENT, AND SECURED. TUBE FEEDING ORDER IS NEPRO 40 ML/HR GOAL, FWF 100 Q6, TOLERATING TUBE FEEDING WELL, RESIDUALS 5 ML. PATIENT CONNECTED TO CONTINUOUS ADMISSIONS REPRESENTATIVE, HR 90 BPM AND RR 26, NO SIGNS OF DISTRESS, TOLERATING VENT SETTINGS WELL. IV ACCESS SITES ARE LEFT IJ TRIPLE LUMEN AND RIGHT IJ GARIMA CATH FOR HD. IV DRIPS RUNNING INCLUDE FENTANYL 1 MCG/KG/HR, VERSED 2 MG/HR, PROPOFOL 30 MCG/KG/MIN, IVF 5 ML/HR, AND HEPARIN 2000 UNITS/HR. PATIENT WEIGHT IS 108.8 KG. PATIENT HAS A SORIANO CATHETER INTACT, PATENT, DRAINING WELL, AND SECURED. SKINS SHOW LEFT FOOT AMPUTATIONS OF BIG TOE AND PINKY TOE WITH PURPLE DISCOLORATION PRESENT TO THE DISTAL PORTION OF THE FOOT. RIGHT FOOT AMPUTATION OF ALL TOES WITH PURPLE DISCOLORATION TO THE DISTAL PORTION OF THE FOOT. SMALL SACRAL WOUND WITH OPEN SKIN PRESENT COVERED WITH Z GUARD AND OPTIFOAM. PATIENT BEING OFFLOADED FROM PRESSURE POINTS WITH USE OF PILLOWS AND FREQUENT REPOSITIONING. BED LOCKED AND LOWERED INTO A POSITION OF SAFETY WITH THE PATIENT IN A POSITION OF COMFORT. WILL CONTINUE TO CLOSELY MONITOR AND FREQUENTLY ROUND.
--- NOTE | 2020-04-13 20:10 | NUR ---
CALLED/PAGED DR. WARNER FROM [facility] TO UPDATE ON PATIENT STATUS, WAITING FOR CALLBACK.
--- NOTE | 2020-04-13 20:15 | NUR ---
RECEIVED CALL BACK FROM DR. WARNER, [facility], TO NOTIFY PHYSICIAN AND UPDATE OF CURRENT PATIENT CONDITION. PATIENT WENT INTO AN EPISODE OF BRADYCARDIA IN THE 40'S AND PATIENTS PACEMAKER STARTED TO PACE AUTOMATICALLY. THE EPISODE LASTED A FEW MINUTES AND RETURNED TO NORMAL SINUS RHYTHM. PHYSICIAN STATED TO CONTINUE MONITORING WITH NO NEW ORDERS AT THIS TIME.
--- NOTE | 2020-04-13 20:20 | NUR ---
2014 INCREASED FIO2 TO 100% DUE TO HEART DECELS AND SATS DROPPED TO 40'S
--- NOTE | 2020-04-13 20:30 | NUR ---
PATIENT VITAL SIGNS HR 88 BPM, RR 28, RESTING IN A POSITION OF COMFORT, HOB 35 DEGREES, OXYGEN SATURATION BACK UP TO 100% ON THE MONITOR, TOLERATING TITRATED FIO2 SETTINGS WELL. WILL CONTINUE TO CLOSELY MONITOR AND FREQUENTLY ROUND.
--- NOTE | 2020-04-13 20:45 | NUR ---
VAP ORAL CARE, ET/ORAL SUCTIONING, REPOSITIONING, HYGIENE AND SAFETY CHECKS PROVIDED. WILL CONTINUE TO CLOSELY MONITOR AND FREQUENTLY ROUND.
--- NOTE | 2020-04-13 22:00 | NUR ---
PATIENT CONTINUING TO REST IN A POSITION OF COMFORT, RASS -3, HOB 30 DEGREES, TOLERATING CURRENT VENT SETTINGS AND THERAPIES WELL. WILL CONTINUE TO CLOSELY MONITOR AND FREQUENTLY ROUND.
--- NOTE | 2020-04-13 23:00 | NUR ---
CALLED/PAGED DR. PLASCENCIA FOR NEW MEDICATION ORDER STATUS REGARDING FLUCONAZOLE. AWAITING CALL BACK FROM PHYSICIAN.
--- NOTE | 2020-04-13 23:10 | NUR ---
RECEIVED CALL ACK FROM DR. PLASCENCIA, INFORMED PHYSICIAN OF NO AVAILABILITY OF ORDERED MEDICATION FLUCONAZOLE 100 MG IVPB, INFORMED OF HIGHER DOSAGE AVAILABILITY ONLY. PHYSICIAN STATED VO TO GIVE HALF, OR 50 ML OF THE 100 ML TOTAL FLUCONAZOLE 200 MG IVPB. WILL CARRY OUT ORDERS AND CHARGE NURSE NOTIFIED OF UPDATE TO ORDER.
[2020-04-13] MEDS ORDERED: FLUCONAZOLE 200 MG/NS PREMIX 100 ML IV ONE (23:20)
[2020-04-13] MEDS: FLUCONAZOLE 100 MG/NS PREMIX 50 ML IV SCH (23:23)
[2020-04-14] VITALS (32 sets, daily range): BP systolic 88–170; BP diastolic 41–102
--- NOTE | 2020-04-14 | NUR ---
VAP ORAL CARE, HYGIENE, REPOSITIONING, ET/ORAL SUCTIONING, AND SAFETY CHECKS PROVIDED. MONITOR SHOWS HR 87 BPM, AND RR 26, NO SIGNS OF DISTRESS. PATIENT TOLERATING CURRENT THERAPIES WELL, WILL CONTINUE TO CLOSELY MONITOR AND FREQUENTLY ROUND.
[2020-04-14] MEDS: BLOOD GLUCOSE MONITORING 1 DEV DEV FS SCH ×4 (00:14→17:59)
[2020-04-14] MEDS: INSULIN LISPRO SLIDING SCALE 100 UNITS/ML VIAL SUBQ PRN ×4 (00:15→18:03)
[2020-04-14] MEDS: Z-GUARD PASTE TP SCH ×2 (00:26→12:27)
[2020-04-14] MEDS: hePARIN / DEXT 5% PREMIX 250 ML IV SCH ×2 (00:58→17:39)
--- NOTE | 2020-04-14 01:00 | NUR ---
RT TITRATED VENT FIO2 SETTINGS DOWN TO 90%, PATIENT TOLERATING ADJUSTMENT WELL, WILL CONTINUE TO CLOSELY MONITOR AND FREQUENTLY ROUND.
--- NOTE | 2020-04-14 02:00 | NUR ---
PATIENT CONTINUING TO REST, RASS -3, INTUBATED AND SEDATED, WILL CONTINUE TO CLOSELY MONITOR AND FREQUENTLY ROUND.
[2020-04-14] MEDS: fentaNYL citrate 1 MG in NACL 0.9% 80 ML IV PRN ×2 (02:10→12:31)
[2020-04-14] MEDS: PROPOFOL 1000 MG/100 ML PREMIX 100 ML IV PRN ×5 (02:39→20:16)
--- NOTE | 2020-04-14 04:00 | NUR ---
CHG BED BATH, VAP ORAL CARE, BELLE CARE, REPOSITIONING, ET/ORAL SUCTIONING AND SAFETY CHECKS PROVIDED. TOLERATING CURRENT THERAPIES WELL. WILL CONTINUE TO CLOSELY MONITOR AND FREQUENTLY ROUND.
[2020-04-14] MEDS: METOCLOPRAMIDE 10 MG/2 ML INJ VIAL IVP SCH ×3 (04:41→20:33)
[2020-04-14 05:58] LABS: ANION GAP 15.1 (8-16); CARBON DIOXIDE 23.4 mmol/L (21-32); POTASSIUM 4.5 mmol/L (3.5-5.1)
--- NOTE | 2020-04-14 06:00 | NUR ---
PATIENT CONTINUING TO REST, RASS -3, INTUBATED AND SEDATED, TOLERATING VENT SETTINGS WELL, WILL CONTINUE TO CLOSELY MONITOR AND FREQUENTLY ROUND.
[2020-04-14 06:02] LABS: MAGNESIUM 2.3 mg/dL (1.8-2.4)
[2020-04-14 06:14] LABS: HEMATOCRIT 30.2 % (36-48); HEMOGLOBIN 9.6 g/dL (12.0-16.0); MEAN CORPUSCULAR HEMOGLOBIN 28 pg (27-31); MEAN CORPUSCULAR HGB CONC 32 g/dL (33-37); MEAN CORPUSCULAR VOLUME 87.2 fL (80-94); PLATELET COUNT (AUTO) 301 K/uL (140-450); RED BLOOD CELL COUNT(AUTO) 3.47 MIL/uL (4.20-5.40); RED CELL DISTRIBUTION WIDTH 15.2 % (11.6-13.7)
[2020-04-14 06:57] LABS: PHOSPHORUS 9.9 mg/dL (2.5-4.9)
--- NOTE | 2020-04-14 07:00 | NUR ---
REPORT AND CARE ENDORSED TO GUILLERMINA CORDERO.
--- NOTE | 2020-04-14 07:10 | NUR ---
RECEIVED HANDOFF FROM BLOCK CUBER RN. PT IS SEDATED RASS -3. PT IS ETT TO VENT ACPC FIO2 80%, R 20, PEEP 5. PT IS SR ON THE MONITOR AT THIS TIME BUT ACCORDING TO BLOCK CUBER HAD EPISODES OF BRADYCARDIA. PT IS ACCESS AT [facility] TRIPLE LUMEN AND [facility]. FENTANYL IS RUNNING AT 1 MCG/KG/HR, VERSED AT 1 MG/HR, PROPOFOL AT 30 MCG/KG/MIN, LEVOPHED AT 6 MCG/MIN, HEPARIN DRIP IS HELD FOR ONE HOUR PER PROTOCOL. PT HAS OG TUBE WITH NEPRON RUNNING AT 40 ML/HR WITH FWF 100 ML Q 6HR. SORIANO CATHETER IS IN PLACE. HOB IS 30 DEG WITH BED IN LOW LOCKED POSITION, SAFETY MEASURES IN PLACE.
[2020-04-14 07:14] LABS: CREATININE 4.5 mg/dL (0.6-1.3)
[2020-04-14 07:36] LABS: WHITE BLOOD COUNT (AUTO) 28.4 K/uL (4.8-10.8)
[2020-04-14 07:38] LABS: LYMPHOCYTES % (MANUAL) 4 % (20-46); MONOCYTES % (MANUAL) 5 % (5-12)
--- NOTE | 2020-04-14 07:43 | NUR ---
PAGED DR. FIELDS REGARDING WBC 28.4
--- NOTE | 2020-04-14 07:48 | NUR ---
DR. FIELDS RETURNED CALL, NO CHANGES.
--- NOTE | 2020-04-14 08:24 | NUR ---
DR. HIRSCH SEEING PT
[2020-04-14] MEDS: PANTOPRAZOLE 40 MG INJ VIAL IVP SCH (08:37)
[2020-04-14] MEDS: DEXAMETHASONE 4 MG/ML VIAL IVP SCH (08:37)
[2020-04-14] MEDS: LINEZOLID 600MG PREMIX 300 ML IV SCH ×2 (08:37→21:13)
[2020-04-14] MEDS: MEROPENEM 500 MG in NACL 0.9% 50 ML IV SCH ×2 (08:37→20:07)
[2020-04-14] MEDS: ASPIRIN 81 MG TAB.CHEW PO SCH (08:38)
--- NOTE | 2020-04-14 09:05 | NUR ---
DR. MON SEEING PT
--- NOTE | 2020-04-14 09:09 | NUR ---
MEDICATIONS ADMINISTERED PER ORDER, PT TOLERATED WELL. VAP ORAL CARE PROVIDED, CHG BATH,AND SORIANO CARE DONE. AUSCULTATED OG TUBE FOR PLACEMENT. 5 ML RESIDUAL. TEMPERATURE 96.6 AXILLARY.
--- NOTE | 2020-04-14 10:00 | NUR ---
SR TECHNICAL SALES CONSULTANT AT BEDSIDE
--- NOTE | 2020-04-14 13:00 | NUR ---
MEDICATIONS ADMINISTERED PER ORDER, PT TOLERATED WELL. PT REPOSITIONED, LINENS CHANGED. WOUND CARE PERFORMED, NEW OPTIFOAM DRESSING IN PLACE. FEET PAINTED WITH BETADINE. TEMPERATURE 96.4 TEMPORALLY. 6 UNITS ADMINISTERED OF INSULIN FOR BS 268.
--- NOTE | 2020-04-14 14:26 | NUR ---
PTT 90.5, HELD HEPARIN FOR 1 HOUR, THEN WILL RESUME AT DECREASED RATE PER PROTOCOL. RATE WILL BE DECREASED FROM 1750 UN/HR TO 1500 UN/HR
--- NOTE | 2020-04-14 14:30 | NUR ---
INFORMED DR. MON OF XRAY RESULT OF L PNEUMOTHORAX 75%. DR. MON WILL CONTACT DR. HARE.
--- NOTE | 2020-04-14 15:00 | NUR ---
DR. HARE AT BEDSIDE TO INSERT CHEST TUBE. CONSENT OBTAINED FROM BROTHER SHELBY
--- NOTE | 2020-04-14 16:30 | NUR ---
PT CLEANED, CHANGED LINENS, CHEST TUBE DRESSING CHANGED. PT REPOSITIONED. VAP ORAL CARE PROVIDED. TEMPERATURE 97.3 TEMPORALLY.
[2020-04-14] MEDS: CALCIUM ACETATE 667 MG TAB PO SCH (17:46)
--- NOTE | 2020-04-14 18:03 | NUR ---
MEDICATIONS GIVEN PER ORDER. PT TOLERATED WELL. BS 272, 6 UNITS OF INSULIN ADMINISTERED FOR COVERAGE
--- NOTE | 2020-04-14 19:23 | NUR ---
HANDOFF GIVEN TO FOUNTAIN WAITRESS/WAITER RN FOR CONTINUITY OF CARE
--- NOTE | 2020-04-14 20:00 | NUR ---
RECEIVED REPORT FROM AM NURSE. PATIENT SEDATED, ETT TO VENT WITH SETTINGS AC/PRVC, FIO2 50% ,VT350, RATE OF 30 PEEP OF 5. PT TOLERATING WELL, NO S/S OF ACUTE DISTRESS AT THIS TIME. O2 SAT 99%. PT RECEIVING FENTANYL AT 1MCG/KG/HR, VERSED AT 1MG/HR , PROPOFOL AT 34.9 MCG/KG/HR , HEP GTT AT 1500U PER HR. PATIENT'S WEIGHT 110.2KG. RASS -3 AT THIS TIME. R IJ GARIMA CATH IN PLACE WITH CLEAN AND DRY DRESSING. TRIPLE LUMEN LEFT IJ CENTRAL LINE FLUSHES WELL WITH GOOD BLOOD RETURN. SORIANO IN PLACE. LEFT CHEST TUBE IN PLACE. GENERALIZED EDEMA NOTED
--- NOTE | 2020-04-14 21:30 | NUR ---
PTT 46.5. NO CHANGES MADE ON HEP GTT
[2020-04-14] MEDS: FLUCONAZOLE 100 MG/NS PREMIX 50 ML IV SCH (23:12)
[2020-04-15] VITALS (51 sets, daily range): BP systolic 42–135; BP diastolic 25–80
[2020-04-15] MEDS: BLOOD GLUCOSE MONITORING 1 DEV DEV FS SCH ×4 (00:30→18:12)
[2020-04-15] MEDS: INSULIN LISPRO SLIDING SCALE 100 UNITS/ML VIAL SUBQ PRN ×3 (00:35→18:39)
[2020-04-15] MEDS: fentaNYL citrate 1 MG in NACL 0.9% 80 ML IV PRN (00:40)
[2020-04-15] MEDS: PROPOFOL 1000 MG/100 ML PREMIX 100 ML IV PRN (00:43)
[2020-04-15] MEDS: Z-GUARD PASTE TP SCH ×2 (00:44→12:46)
--- NOTE | 2020-04-15 04:20 | NUR ---
PATIENT CLEANED, LINENS CHANGED. SORIANO CARE DONE. PT REPOSITIONED FOR COMFORT.
--- NOTE | 2020-04-15 04:23 | NUR ---
PTT 63.4 NO CHANGES MADE ON HEP PTT PER PROTOCOL
--- NOTE | 2020-04-15 04:40 | NUR ---
PAGED DR WARNER AND INFORMED HIM ABOUT PATIENT'S HR SUSTAINING IN THE 40s. RECEIVED ORDERS TO TITRATE LEVO PER PROTOCOL AND TO START PATIENT ON DOPAMINE GTT IF SBP REMAINS LESS THAN 90.
[2020-04-15] MEDS ORDERED: DOPamine 400 MG/D5W PREMIX 250 ML IV ONE (04:45)
[2020-04-15] MEDS: DOPamine 400 MG/D5W PREMIX 250 ML IV PRN ×2 (04:58→15:51)
[2020-04-15] MEDS: METOCLOPRAMIDE 10 MG/2 ML INJ VIAL IVP SCH ×3 (05:57→20:35)
[2020-04-15 06:01] LABS: PHOSPHORUS 8.3 mg/dL (2.5-4.9)
[2020-04-15 06:03] LABS: HEMATOCRIT 23.4 % (36-48); MEAN CORPUSCULAR HEMOGLOBIN 28 pg (27-31); MEAN CORPUSCULAR HGB CONC 33 g/dL (33-37); MEAN CORPUSCULAR VOLUME 87.2 fL (80-94); PLATELET COUNT (AUTO) 151 K/uL (140-450); RED BLOOD CELL COUNT(AUTO) 2.69 MIL/uL (4.20-5.40); RED CELL DISTRIBUTION WIDTH 15.4 % (11.6-13.7)
[2020-04-15 06:07] LABS: ANION GAP 18.4 (8-16); CARBON DIOXIDE 20.1 mmol/L (21-32); POTASSIUM 4.5 mmol/L (3.5-5.1)
[2020-04-15 06:28] LABS: CREATININE 4.3 mg/dL (0.6-1.3)
--- NOTE | 2020-04-15 06:30 | NUR ---
NOTIFIED DR JURADO ABOUT PATIENT'S GLUCOSE LEVEL OF 437. RECEIVED ORDER TO ADMINISTER 12U OF HUMALOG SUBQ.
[2020-04-15 06:33] LABS: HEMOGLOBIN 7.6 g/dL (12.0-16.0)
[2020-04-15 07:00] LABS: LYMPHOCYTES % (MANUAL) 5 % (20-46); MONOCYTES % (MANUAL) 4 % (5-12)
[2020-04-15] MEDS ORDERED: INSULIN LISPRO 100 UNITS/ML VIAL SUBQ SCH ×2 (07:30→18:40)
--- NOTE | 2020-04-15 07:31 | NUR ---
PATIENT REPORT GIVEN TO AM NURSE
--- NOTE | 2020-04-15 07:49 | NUR ---
NOTIFIED CHARGE NURSE(STEVE) TO CALL PRIMARY DR JURADO REGARDING CHEST TUBE PLACEMENT, NOTICE PT HAS ALOT OF CREPITUS UPPER CHEST AND ENLARGED BREAST COMPARED TO LAST WEEK.
--- NOTE | 2020-04-15 07:53 | NUR ---
ABGs DRAWN AT THIS TIME
--- NOTE | 2020-04-15 08:39 | NUR ---
DR JURADO IS HERE AWARE OF CREPITUS AND BLOOD GAS STATED WILL DO ULTRA SOUND, CHARGE NURSE STATED TO DR JURADO TO NOTIFY FAMILY OF HER CONDITION
[2020-04-15] MEDS: MEROPENEM 500 MG in NACL 0.9% 50 ML IV SCH ×2 (09:18→20:20)
[2020-04-15] MEDS: DEXAMETHASONE 4 MG/ML VIAL IVP SCH (09:19)
[2020-04-15] MEDS: PANTOPRAZOLE 40 MG INJ VIAL IVP SCH (09:19)
[2020-04-15] MEDS: LINEZOLID 600MG PREMIX 300 ML IV SCH ×2 (09:20→20:35)
[2020-04-15] MEDS: ASPIRIN 81 MG TAB.CHEW PO SCH (09:20)
[2020-04-15] MEDS: CALCIUM ACETATE 667 MG TAB PO SCH ×3 (09:27→16:51)
--- NOTE | 2020-04-15 09:35 | NUR ---
DR DOBSON HERE AWARE OF PT CONDITION STATED WILL LOOK AT THE XRAY
--- NOTE | 2020-04-15 09:45 | NUR ---
DR COREA HERE AWARE OF PT CONDITION ,STATED SHE POSSIBLY HAS BARREL TRAUMA
[2020-04-15] MEDS: hePARIN / DEXT 5% PREMIX 250 ML IV SCH (10:15)
--- NOTE | 2020-04-15 10:20 | NUR ---
FENTAYL STOPPED AT THIS TIME
--- NOTE | 2020-04-15 10:56 | NUR ---
US TECH HERE AT THIS TIME
--- NOTE | 2020-04-15 13:00 | NUR ---
1300 DENTURE WAXER IS HERE, VERSED OFF AT THIS TIME
--- NOTE | 2020-04-15 13:00 | NUR ---
11:30 BLOOD GLUCOSE >400, ASKED CHARGE NURSE TO CALL DR JURADO FOR ORDERS
--- NOTE | 2020-04-15 15:21 | NUR ---
1520 DR CANTRELL HERE STATED HE WILL HOLD HD FOR TOMORROW ,STATED SHERRY CALL SON REGARDING HER CONDITION.
[2020-04-15] MEDS ORDERED: INSULIN LANTUS 100 UNITS/ML 10 ML VIAL SUBQ SCH (18:25)
[2020-04-15] MEDS ORDERED: INSULIN LISPRO 100 UNITS/ML VIAL SUBQ ONE (18:30)
--- NOTE | 2020-04-15 19:30 | NUR ---
RECEIVED PATIENT CARE AND REPORT FROM GUILLERMINA RN. PATIENT ETT TO VENT, HOB 30 DEGREES, VENT SETTINGS AC/PRVC FIO2 90%, RR 30, PEEP 5. PATIENT HAS AN OG TUBE IN PLACE, PATENT,INTACT, AND FLUSHING WELL. TUBE FEEDING ORDER IS NEPRO 40 ML/HR, FWF 100 Q6. PATIENT CONNECTED TO CONTINUOUS PHARMACY OPERATIONS SPECIALIST HR 68, RR 26, WILL CONTINUE TO CLOSELY MONITOR. PATIENT HAS ABSENT LUNG SOUNDS ON THE LEFT LUNG, RIGHT LUNG DIMINISHED, CHEST TUBE CURRENTLY IN PLACE LEFT SIDE CHEST WALL, SEROSANGUINEOUS DRAINAGE AT THE 100 CC KRISTIAN AT BEGINNING OF SHIFT. PATIENT IV ACCESS SITE IS LEFT IJ TRIPLE LUMEN AND RIGHT IJ GARIMA CATH. IV DRIPS CURRENTLY RUNNING ARE IVF 5 ML/HR, LEVO AT 12 MCG/MIN, DOPAMINE AT 5 MCG/KG/MIN, HEPARIN 1500 UNIT/HR. PATIENT WEIGHT IS CURRENTLY 110.2 KG. PATIENT HAS A SORIANO CATHETER IN PLACE PATENT, INTACT AND DRAINING WELL. SKINS SHOW BILATERAL FOOT PURPLE DISCOLORATION. LEFT FOOT BIG TOE AND PINKY TOE AMPUTATIONS, RIGHT FOOT ALL TOES AMPUTATED, SACRAL WOUND AND RIGHT BUTTOCKS, OPTIFOAM APPLIED. PATIENT CURRENTLY BEING OFFLOADED FROM PRESSURE POINTS WITH USE OF PILLOWS AND FREQUENT REPOSITIONING. BED LOCKED AND LOWERED INTO A POSITION OF SAFETY. WILL CONTINUE TO CLOSELY MONITOR AND FREQUENTLY ROUND.
--- NOTE | 2020-04-15 20:00 | NUR ---
VAP ORAL CARE, HYGIENE, REPOSITIONING, ET/ORAL SUCTIONING AND SAFETY CHECKS PROVIDED. WILL CONTINUE TO CLOSELYMONITORAND FREQUENTLY ROUND.
[2020-04-15] MEDS: FLUCONAZOLE 100 MG/NS PREMIX 50 ML IV SCH (21:51)
--- NOTE | 2020-04-15 22:00 | NUR ---
PATIENT 76 BPM, RR, CONTINUES TO BE RASS -3, INTUBATED AND SEDATED ON VENT.CHEST TUBE STILL IN PLACE, WILL CONTINUE TO CLOSELY MONITOR AND FREQUENTLY ROUND.
[2020-04-16] VITALS (35 sets, daily range): BP systolic 89–166; BP diastolic 45–104
--- NOTE | 2020-04-16 | NUR ---
VAP ORAL CARE, ET/ORAL SUCTIONING, REPOSITIONING, HYGIENE AND SAFETY CHECKS. WILL CONTINUE TO CLOSELY MONITOR AND FREQUENTLY ROUND.
[2020-04-16] MEDS: BLOOD GLUCOSE MONITORING 1 DEV DEV FS SCH ×5 (00:14→23:44)
--- NOTE | 2020-04-16 00:20 | NUR ---
ACCUCHECK BLOOD SUGAR 421,PER PROTOCOL, CALL FOR DR. RAMOS.
--- NOTE | 2020-04-16 00:35 | NUR ---
SPOKE WITH DR. RAMOS, VO TOLD TO GIVE 12 UNITS OF HUMALOG SUQ. WILL CARRY OUT ORDERS. Addendum: 04/16/20 at 0233 by Real Polk RN RN SUB-Q
[2020-04-16] MEDS: INSULIN LISPRO SLIDING SCALE 100 UNITS/ML VIAL SUBQ PRN ×5 (00:37→23:45)
[2020-04-16] MEDS: Z-GUARD PASTE TP SCH ×2 (01:14→12:28)
--- NOTE | 2020-04-16 02:00 | NUR ---
PATIENT CONTINUES TO REST, IS CALM, INTUBATED AND SEDATED, RASS -3, HR 70 BPM ON THE MONITOR, RR 26, WILL CONTINUE TO CLOSELY MONITOR AND FREQUENTLY ROUND.
[2020-04-16] MEDS: hePARIN / DEXT 5% PREMIX 250 ML IV SCH ×3 (02:42→16:48)
[2020-04-16] MEDS: DOPamine 400 MG/D5W PREMIX 250 ML IV PRN (03:59)
--- NOTE | 2020-04-16 04:00 | NUR ---
VAP ORAL CARE, ET/ORAL SUCTIONING, HYGIENE, BED BATH, CHEST TUBE CARE, BELLE CARE, REPOSITIONING AND SAFETY CHECKS PROVIDED. WILL CONTINUE TO CLOSELY MONITOR AND FREQUENTLY ROUND.
[2020-04-16] MEDS: METOCLOPRAMIDE 10 MG/2 ML INJ VIAL IVP SCH ×3 (04:55→21:00)
--- NOTE | 2020-04-16 06:20 | NUR ---
SPOKE WITH DR. RAMOS ABOUT ACCUCHECK BLOOD SUGAR 465, GIVEN VO TO GIVE 12 UNITS OF HUMALOG SUB-Q. WILL CARRY OUT ORDERS.
[2020-04-16 06:28] LABS: ANION GAP 25.7 (8-16); CARBON DIOXIDE 15.8 mmol/L (21-32)
[2020-04-16 06:29] LABS: HEMATOCRIT 27.9 % (36-48); HEMOGLOBIN 8.9 g/dL (12.0-16.0); MEAN CORPUSCULAR HEMOGLOBIN 28 pg (27-31); MEAN CORPUSCULAR HGB CONC 32 g/dL (33-37); MEAN CORPUSCULAR VOLUME 87.8 fL (80-94); PLATELET COUNT (AUTO) 253 K/uL (140-450); RED BLOOD CELL COUNT(AUTO) 3.18 MIL/uL (4.20-5.40); RED CELL DISTRIBUTION WIDTH 15.8 % (11.6-13.7)
--- NOTE | 2020-04-16 06:30 | NUR ---
CALLED AND PAGED FOR DR. QUIÑONEZ TO INFORM OF CRITICAL LABS, AWAITING CALL BACK.
--- NOTE | 2020-04-16 06:45 | NUR ---
RECEIVED CALL BACK FROM DR. QUIÑONEZ, INFORMED PHYSICIAN OF CRITICAL LABS SUCH PTT 94, K+ 6.5, GLUCOSE 507, CREAT 5.8, CA 7.4, BUN 131. DR. QUIÑONEZ GAVE ORDERS TO START HD THIS MORNING, GIVE CALCIUM CHLORIDE 1 AMP IV AND GIVE BICARB 1 AMP IV. WILL CARRY OUT ORDERS.
[2020-04-16 06:46] LABS: CREATININE 5.8 mg/dL (0.6-1.3)
[2020-04-16 06:48] LABS: POTASSIUM 6.5 mmol/L (3.5-5.1)
--- NOTE | 2020-04-16 07:00 | NUR ---
REPORT AND CARE ENDORSED TO GUILLERMINA CORDERO.
[2020-04-16 07:02] LABS: MAGNESIUM 2.4 mg/dL (1.8-2.4)
[2020-04-16 07:28] LABS: PHOSPHORUS 13.8 mg/dL (2.5-4.9)
[2020-04-16] MEDS ORDERED: SODIUM BICARBONATE 8.4% PFS 50 MEQ/50 ML SYR IVP SCH (08:00)
[2020-04-16] MEDS ORDERED: CALCIUM CHLORIDE 10% 1,000 MG in NACL 0.9% 100 ML IV SCH (08:00)
[2020-04-16] MEDS: PANTOPRAZOLE 40 MG INJ VIAL IVP SCH (08:17)
[2020-04-16] MEDS: CALCIUM ACETATE 667 MG TAB PO SCH ×3 (08:17→17:11)
[2020-04-16] MEDS: DEXAMETHASONE 4 MG/ML VIAL IVP SCH (08:17)
[2020-04-16] MEDS: ASPIRIN 81 MG TAB.CHEW PO SCH (08:18)
--- NOTE | 2020-04-16 08:45 | NUR ---
SCHEDULED MEDICATIONS DUE GIVEN. WILL CONTINUE TO MONITOR. DR. MARTINEZ AT BEDSIDE TO REVIEW PLAN OF CARE WITH PATIENT. HD NURSE AT BEDSIDE TO PERFORM HD. WILL CONTINUE TO MONITOR.
[2020-04-16 08:56] LABS: LYMPHOCYTES % (MANUAL) 3 % (20-46); MONOCYTES % (MANUAL) 2 % (5-12)
[2020-04-16] MEDS: LINEZOLID 600MG PREMIX 300 ML IV SCH ×2 (09:00→21:30)
[2020-04-16] MEDS: MEROPENEM 500 MG in NACL 0.9% 50 ML IV SCH ×2 (09:00→21:30)
[2020-04-16] MEDS ORDERED: INSULIN LANTUS 100 UNITS/ML 10 ML VIAL SUBQ SCH (09:00)
--- NOTE | 2020-04-16 10:29 | NUR ---
CURRENTLY ON HEMODIALYSIS. WILL CONTINUE TO MONITOR.
--- NOTE | 2020-04-16 11:32 | NUR ---
HD COMPLETED, 1.6L OUT. SCHEDULED MEDICATIONS DUE GIVEN. WILL CONTINUE TO MONITOR.
--- NOTE | 2020-04-16 12:45 | NUR ---
SCHEDULED MEDICATIONS DUE GIVEN. WILL CONTINUE TO MONITOR.
--- NOTE | 2020-04-16 13:00 | NUR ---
CLEANED PATIENT, HAD LARGE BM, DIARRHEA. LEFT CHEST TUBE INSERTION SITE BLEEDING AND TUBE IS CLOGGED WITH BLOOD CLOTS NEAR INSERTION POINT. REINFORCED DRESSING. NOTIFIED DR. JURADO AND DR. COONEY. PER DR. COONEY TRY TO MILK THE BLOOD CLOT OUT, IF NOT CALL THE SURGEON, DR. JAKE HARE.
--- NOTE | 2020-04-16 14:00 | NUR ---
PATIENT HAD ANOTHER LARGE BM, DIARRHEA. PLACED RECTAL TUBE PER MD ORDERS. TRIED MILKING THE BLOOD CLOT AT INSERTION SITE OF LEFT CHEST TUBE. GOT SOME OF IT OUT, BUT CLOT STILL THERE. PAGED DR. JAKE HARE TO NOTIFY HIM. WILL CONTINUE TO MONITOR.
--- NOTE | 2020-04-16 14:30 | NUR ---
ADRIEN GUTHRIE NOTIFIED THAT PT. HAS BLEEDING AROUND CHEST TUBE AND CHEST TUBE IS CLOT. HE SAD TO CALL ...DR. COONEY.
--- NOTE | 2020-04-16 14:45 | NUR ---
NOTIFIED DR. COONEY THAT PATIENT IS BLEEDING AROUND CHEST TUBE AND SOAK THOUGH THE DRESSING AND THERE ARE CLOT IN THE TUBE STOP IT FROM BEING DRAIN. HE SAID TO TRY TO MILK THE TUBE TO REMOVE THE CLOT. WHEN MILKING THE TUBE ONLY PARTIAL OF THE CLOT CAME OUT THE TUBE STILL REMAIN CLOT.
--- NOTE | 2020-04-16 15:21 | NUR ---
CALLED DR JAKE HARE INFORM HIM THAT THERE IS BLEEDING AROUND THE CHEST TUBE SITE AND THE TUBE IS CLOTINTHE TUBE.HE IS AWARE AND SAID IT OK HE WILL SEE PATIENT IN THE MORNING. DRESSING APPLIED.
[2020-04-16] MEDS: NOREPINEPHRINE 16 MG in DEXTROSE 5% 250 ML IV PRN (15:50)
[2020-04-16] MEDS: ALUMINUM HYDROXIDE 64 MG/ML BOTTLE PO SCH ×2 (17:13→23:44)
--- NOTE | 2020-04-16 17:13 | NUR ---
SCHEDULED MEDICATIONS DUE GIVEN. WILL CONTINUE TO MONITOR.
--- NOTE | 2020-04-16 19:30 | NUR ---
RECEIVED REPORT FROM MALACHI CORDERO. [place] IS ETT TO VENT, VENT SETTING AC/PC FIO2 55%, RATE 30 PEEP 5. SINUS TACHY NOTED ON MEMBERSHIP CORRESPONDENT. CENTRAL LINE TO LEFT IJ TRIPLE LUMENS WITH RUNNING LEVOPHED AT 10 MCG/MIN AND PT ON HEPARIN DRIP AT 1000 UNITS/HR.PT ALSO HAVE GARIMA CATH TO RIGHT IJ FOR DIALYSIS PORT. PT WAS HAD DIALYSIS TO DAY AND 1.6 LITER WAS TAKEN. PER REPORT PT ON SCHEDULE FOR DIALYSIS TOMORROW WELL. THE GARIMA IS CLOG PER [facility] NURSE AND SHE SAID SHE WILL NOTIFIED MD.CHEST TUBE ON THE LEFT CHEST AND PER REPORT IT WAS CLOGGED AND LEAKING AND MD AWARE WILL SEE PT IN AM. NO DRAIN DURING AM SHIFT. NO URINE NOTED IN AM SHIFT. SKIN WARM TO TOUCH. GENERALIZED EDEMA NOTED. AMPUTATION TO ALL TOES ON RIGHT FOOT AND 3 TOES ON LEFT FOOT, AREA BLACKISH COLOR.TX IN PROGRESS.F/C IN PLACE NOTED YELLOW DARK URINE ABOUT [address]UBE IN PL[address] NO BM NOTED.GENTLE CARE GIVEN.CONT MONITOR PT CLOSELY.
--- NOTE | 2020-04-16 19:35 | NUR ---
GAVE REPORT TO DRAW STRING KNOTTER NURSE FOR CONTINUITY OF CARE. PATIENT CONTINUES TO BE IN CRITICAL CONDITION.
--- NOTE | 2020-04-16 21:37 | NUR ---
SHELBY SHORE BROTHER CALLED AND SAID THAT NAHOMY CAMARGO SON ALREADY 19 YEARS OLD AND HE WILL THE ONE MAKE DECISION FOR THE MOTHER. SHELBY SAID THE SON WANT TO SPEAK TO MD AND WILL FOLLOW UP IN AM.
[2020-04-16] MEDS: FLUCONAZOLE 100 MG/NS PREMIX 50 ML IV SCH (22:18)
--- NOTE | 2020-04-16 23:49 | NUR ---
LAB CALLING AND REPORTING THAT PTT 51.2 ,NO NEED CHANGE OF DOSE PER PARAMETER, LAB PTT ORDER FOR NEXT 6 HOURA T 0445,
[2020-04-17] VITALS (7 sets, daily range): BP systolic 0–121; BP diastolic 0–83
--- NOTE | 2020-04-17 | NUR ---
BLOOD SUGAR WAS 243 AND 4 UNITS INSULIN GIVEN.
[2020-04-17] MEDS: hePARIN / DEXT 5% PREMIX 250 ML IV SCH (00:30)
[2020-04-17] MEDS: Z-GUARD PASTE TP SCH (01:00)
--- NOTE | 2020-04-17 03:00 | NUR ---
AT 0154 MONITOR SHOW HR WAS LOW 40'S, CHECK PT AND NOTED PT DO NOT GIVE ANY RESPOND AND HR IS 40. CODE BLUE ANNOUNCED. NO PULSE PALPATED. CPR STARTED. OT IS ETT TO VENT. EMERGENCY TEAM AND ER MD COME TO HELP THE CODE. DURING CODE PT RECEIVING ACLS MEDS 5 EPINEPHRINE,1 CA GLUCONATE DOSE,1 MAGNESIUM AND 1 SODIUM BICARB. UNABLE TO BRING PT BACK. DR.SAID STACY WHO LEAD THE CODE PRONOUNCE THE TIME OF AT 0213. AT 0222 ABLE TO SPOKE WITH NAHOMY THE SON AND MAKE AWARE PT . NAHOMY SAID HE WILL NOT COMING TO NIGHT INSTEAD WILL COMING IN AM TO INSURANCE JOB TITLES BELONGING. ALSO HE SAID HE DO NOT KNOW THE MORTUARY ARRANGEMENT YET HE SAID WILL INFORM IN THE MORNING WHEN HE COME OR HE WILL CALL IN AM.PLACE CALL TO [facility] SHORE THE BROTHER AND MADE HIM AWARE PT . HE SAID THANK YOU AND HE SAID NAHOMY PT SON'S WILL TAKE CARE ALL THE MORTUARY AND THE BELONGING. AT 0238 PLACED CALL TO CAMP MAINTENANCE SUPERVISOR MADE AWARE THE PT AND DIAGNOSIS OF COVID AND THE DEPUTY SAID WILL CALL BACK. AT 0239 PLACED CALL TO [facility] SPEAK WITH CHERYL GIVE INFORMATION ABOUT PT AND AWARE PT DX IS COVID 19 PNA. SHE GIVE REFERRAL NUMBER [phone],SHE SAID SOME ONE WILL CALL BACK. AT 0255 DEPUTY [place] VASQUEZ CALL AND SAID PT IS NOT CAMP MAINTENANCE SUPERVISOR CASE, NO RELEASE NUMBER. FAMILY CAN BRING HER TO ANY MORTUARY OF FAMILY CHOICE. STILL WAITING [facility] TO CALL BACK.
--- NOTE | 2020-04-17 03:36 | NUR ---
MANPREET LOWE FROM [facility] CALL AND GIVE RELEASE NUMBER [phone].
[2020-04-17] MEDS: METOCLOPRAMIDE 10 MG/2 ML INJ VIAL IVP SCH (05:00)
--- NOTE | 2020-04-17 05:10 | NUR ---
MORTEM CARE DONE. REMOVED ALL THE TUBINGS AND CENTRAL LINES. REMOVE THE ETT AND CHEST TUBE. BED BATH GIVEN TO PT. KEPT PT CLEAN AND DRY. FAMILY WILL COME TO SEE PT.
[2020-04-17] MEDS: BLOOD GLUCOSE MONITORING 1 DEV DEV FS SCH (05:20)
[2020-04-17] MEDS: ALUMINUM HYDROXIDE 64 MG/ML BOTTLE PO SCH (05:21)
--- NOTE | 2020-04-17 05:21 | NUR ---
THE SISTER AND NAHOMY SON COME AND SEE REMIND. ALL BELONGINGS GIVE TO FAMILY. FAMILY SAID THANK YOU AND LEFT AT 0519.
--- NOTE | 2020-04-17 06:10 | NUR ---
SECURITY AND ER STAFF BRING PT OUT FROM ICU TO DESIGNATED PLACE UNTIL MORTUARY SERVICE PROVIDER THE BODY.
== END 2020-04-17 02:13 | DRG 720 ==
LOC: MED 13:12 → MTU 14:49 → MIC 03-29 09:17
PROVIDERS: ADMIT Family Medicine; ATTEND Family Medicine
PROC: 02HV33Z Insertion of Infusion Device into Superior Vena Cava, Percutaneous Approach (ICD-10-PCS; 2020-03-29)
PROC: B548ZZA Ultrasonography of Superior Vena Cava, Guidance (ICD-10-PCS; 2020-03-29)
PROC: 5A09357 Assistance with Respiratory Ventilation, Less than 24 Consecutive Hours, Continuous Positive Airway Pressure (ICD-10-PCS; 2020-03-29)
PROC: XW13325 Transfusion of Convalescent Plasma (Nonautologous) into Peripheral Vein, Percutaneous Approach, New Technology Group 5 (ICD-10-PCS; 2020-03-29)
PROC: 5A1955Z Respiratory Ventilation, Greater than 96 Consecutive Hours (ICD-10-PCS; principal; 2020-03-30)
PROC: 0BH17EZ Insertion of Endotracheal Airway into Trachea, Via Natural or Artificial Opening (ICD-10-PCS; 2020-03-30)
PROC: 02HV33Z Insertion of Infusion Device into Superior Vena Cava, Percutaneous Approach (ICD-10-PCS; 2020-03-30)
PROC: B548ZZA Ultrasonography of Superior Vena Cava, Guidance (ICD-10-PCS; 2020-03-30)
PROC: 05PYX3Z Removal of Infusion Device from Upper Vein, External Approach (ICD-10-PCS; 2020-03-30)
PROC: 02HV33Z Insertion of Infusion Device into Superior Vena Cava, Percutaneous Approach (ICD-10-PCS; 2020-04-03)
PROC: 0W9B30Z Drainage of Left Pleural Cavity with Drainage Device, Percutaneous Approach (ICD-10-PCS; 2020-04-14)
PROC: 4A00X4Z Measurement of Central Nervous Electrical Activity, External Approach (ICD-10-PCS; 2020-04-16)
DX: A41.9 Sepsis, unspecified organism (principal); U07.1 COVID-19; E43 Unspecified severe protein-calorie malnutrition; G93.41 Metabolic encephalopathy; E87.1 Hypo-osmolality and hyponatremia; I50.43 Acute on chronic combined systolic (congestive) and diastolic (congestive) heart failure; D68.59 Other primary thrombophilia; E66.9 Obesity, unspecified; E78.5 Hyperlipidemia, unspecified; E86.0 Dehydration; E87.2 Acidosis; I25.10 Atherosclerotic heart disease of native coronary artery without angina pectoris; J12.82 Pneumonia due to coronavirus disease 2019; J15.212 Pneumonia due to Methicillin resistant Staphylococcus aureus; J93.9 Pneumothorax, unspecified; N17.0 Acute kidney failure with tubular necrosis; R13.11 Dysphagia, oral phase; Y95 Nosocomial condition; E87.5 Hyperkalemia; N18.4 Chronic kidney disease, stage 4 (severe); I13.0 Hypertensive heart and chronic kidney disease with heart failure and stage 1 through stage 4 chronic kidney disease, or unspecified chronic kidney disease; E11.22 Type 2 diabetes mellitus with diabetic chronic kidney disease; E11.42 Type 2 diabetes mellitus with diabetic polyneuropathy; F19.10 Other psychoactive substance abuse, uncomplicated; R13.10 Dysphagia, unspecified; J80 Acute respiratory distress syndrome; N39.0 Urinary tract infection, site not specified; B37.3 Candidiasis of vulva and vagina; J98.2 Interstitial emphysema; Z68.35 Body mass index [BMI] 35.0-35.9, adult; Z88.1 Allergy status to other antibiotic agents; Z95.0 Presence of cardiac pacemaker
CPT/HCPCS: 31500; 36415; 36600; 71045; 73590; 73630; 76641; 80048; 80053; 80305; 81001; 82150; 82550; 82553; 82803; 82948; 83036; 83605; 83615; 83690; 83735; 83880; 84100; 84436; 84439; 84443; 84479; 84484; 85025; 85379; 85610; 85651; 85730; 86140; 86870; 86886; 86900; 86901; 87040; 87070; 87081; 87086; 87186; 87205; 89220; 93005; 93925; 93970; 94002; 94003; 94660; 96374; 96375; 99291; C1894; C9113; J0610; J0696; J1100; J1265; J1450; J1644; J1815; J2020; J2185; J2250; J2270; J2405; J2704; J2765; J3010; J3490; J7030; J7042; J7060; P9017; U0003